=== PATIENT | female | born 2000 | race African-American/Black ===

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

== ENCOUNTER 2019-01-10 15:23 | Emergency (ER) | payer MEDICAID, SELFPAY ==
[2019-01-10] MEDS ORDERED: PEN G BENZ LA 2.4 MU/4 ML SYRINGE IM ONE (17:30)
[2019-01-10 17:31] LABS: Urine Blood NEGATIVE (NEG); Urine Glucose NEGATIVE (NEG); Urine Protein 1+ (NEG); Urine Specific Gravity 1.025 (1.005-1.030)
[2019-01-10 17:53] LABS: Urine Bacteria <20 /HPF (<20); Urine Culture Reflex Order NOT NEEDED; Urine Mucus HEAVY /HPF (NONE SEEN)
--- NOTE | 2019-01-10 18:10 | EDPHYS ---
Physician Documentation [facility] Name: Golden Gusman Age: 18 yrs Sex: Female : 2000 Arrival Date: 01/10/2019 Time: 15:27 Bed 27 Private MD: ED Physician Allan Olivera HPI: 01/10 18:08 This 18 yrs old Black Female presents to ER via Ambulatory with complaints of Sore snw Throat, Abdominal Problem. 18:08 The patient presents with sore throat. The patient describes throat pain as raw, snw scratchy. Onset: The symptoms/episode began/occurred suddenly, 2 day(s) ago, and became persistent. Modifying factors: The symptoms are alleviated by nothing, the symptoms are aggravated by nothing. Associated signs and symptoms: Pertinent positives: concerned for STI post unprotected intercourse. It is unknown whether or not the patient has had similar symptoms in the past. It is unknown whether or not the patient has recently seen a physician. Historical: - Allergies: 15:34 NKA; hb - Home Meds: 15:34 None [Active]; hb - PMHx: 15:34 None; hb - PSHx: 15:34 None; hb - Immunization history:: Adult Immunizations up to date. - Social history:: Smoking status: Patient/guardian denies using tobacco. - Ebola Screening: : No symptoms or risks identified at this time. ROS: 18:03 Constitutional: Negative for fever and weight loss, + chills Eyes: Negative for injury, snw pain, redness, and discharge, ENT: Negative for injury and discharge, + sore throat Neck: Negative for injury, pain, and swelling, Cardiovascular: Negative for chest pain, palpitations, and edema, Respiratory: Negative for shortness of breath, cough, wheezing, and pleuritic chest pain, Abdomen/GI: Negative for abdominal pain, nausea, vomiting, diarrhea, and constipation, Back: Negative for injury and pain, : Negative for injury, bleeding, discharge, and swelling, concern post unprotected intercourse. MS/Extremity: Negative for injury and deformity, Skin: Negative for injury, rash, and discoloration, Neuro: Negative for headache, weakness, numbness, tingling, and seizure, Psych: Negative for depression, anxiety, suicide ideation, homicidal ideation, and hallucinations. Exam: 18:03 Head/Face: Normocephalic, atraumatic. Eyes: Pupils equal round and reactive to light, snw extra-ocular motions intact. Lids and lashes normal. Conjunctiva and sclera are non-icteric and not injected. Cornea within normal limits. Periorbital areas with no swelling, redness, or edema. Neck: Trachea midline, no thyromegaly or masses palpated, and no cervical lymphadenopathy. Supple, full range of motion without nuchal rigidity, or vertebral point tenderness. No Meningismus. Chest/axilla: Normal chest wall appearance and motion. Nontender with no deformity. No lesions are appreciated. 18:03 Respiratory: Lungs have equal breath sounds bilaterally, clear to auscultation and percussion. No rales, rhonchi or wheezes noted. No increased work of breathing, no retractions or nasal flaring. Abdomen/GI: Soft, non-tender, with normal bowel sounds. No distension or tympany. No guarding or rebound. No evidence of tenderness throughout. Back: No spinal tenderness. No costovertebral tenderness. Full range of motion. Skin: Warm, dry with normal turgor. Normal color with no rashes, no lesions, and no evidence of cellulitis. MS/ Extremity: Pulses equal, no cyanosis. Neurovascular intact. Full, normal range of motion. Neuro: Awake and alert, GCS 15, oriented to person, place, time, and situation. Cranial nerves II-XII grossly intact. Motor strength 5/5 in all extremities. Sensory grossly intact. Cerebellar exam normal. Normal gait. Psych: Awake, alert, with orientation to person, place and time. Behavior, mood, and affect are within normal limits. 18:03 Constitutional: The patient appears alert, awake, uncomfortable. 18:03 Cardiovascular: Rate: tachycardic, Rhythm: regular, Heart sounds: normal. Vital Signs: 15:33 BP 131 / 75; Pulse 117; Resp 20; Temp 97.4; Pulse Ox 100% on R/A; Weight 71.67 kg; hb Height 5 ft. 7 in. (170.18 cm); Pain 6/10; 18:29 BP 128 / 71; Pulse 98; Resp 16; Temp 98; Pulse Ox 99% ; rv 15:33 Body Mass Index 24.75 (71.67 kg, 170.18 cm) hb MDM: 16:39 Patient medically screened. snw 18:10 Data reviewed: vital signs, nurses notes. Data interpreted: Pulse oximetry: on room air snw is 100 %. Interpretation: normal. Counseling: I had a detailed discussion with the patient and/or guardian regarding: the historical points, exam findings, and any diagnostic results supporting the discharge/admit diagnosis, lab results, the need for outpatient follow up, to return to the emergency department if symptoms worsen or persist or if there are any questions or concerns that arise at home. Special discussion: Based on the history and exam findings, there is no indication for further emergent testing or inpatient evaluation. I discussed with the patient/guardian the need to see the primary care provider for further evaluation of the symptoms. 01/10 16:21 Order name: Flu; Complete Time: 18:27 snw 01/10 16:21 Order name: Strep; Complete Time: 17:18 snw 01/10 16:31 Order name: Urine Culture snw 01/10 16:31 Order name: Urine Microscopic Only; Complete Time: 18:12 snw 01/10 16:59 Order name: GC (Ulisses/Chl) Probe URINE EDMS 01/10 17:18 Order name: Urine Dipstick--Ancillary (enter results); Complete Time: 17:35 bd 01/10 16:31 Order name: Urine Test (obtain specimen); Complete Time: 17:10 snw 01/10 16:31 Order name: Urine Dipstick-Ancillary (obtain specimen); Complete Time: 17:10 snw 01/10 17:18 Order name: Urine --Ancillary (enter results); Complete Time: 17:35 bd Administered Medications: 17:33 Drug: Bicillin L-A 2.4 million units Route: IM; Site: left gluteus; rv 18:28 Follow up: Response: No adverse reaction rv Disposition: 01/11 07:17 Co-signature as Attending Physician, Allan Olivera MD I agree with the assessment and kdr plan of care. Disposition: 01/10/19 18:09 Discharged to Home. Impression: Streptococcal pharyngitis. - Condition is Stable. - Discharge Instructions: Fever, Adult, Sexually Transmitted Disease, Strep Throat, Rehydration, Adult, Safe Sex. - Prescriptions for Mobic 7.5 mg Oral Tablet - take 1 tablet by ORAL route once daily take with food; 20 tablet. - Medication Reconciliation Form, Thank You Letter, Antibiotic Education, Prescription Opioid Use form. - Follow up: Private Physician; When: 2 - 3 days; Reason: Recheck today's complaints, Continuance of care, Re-evaluation by your physician. Follow up: Emergency Department; When: As needed; Reason: Worsening of condition. Signatures: Dispatcher [employer] EDMS Allan Olivera MD MD [facility] Mary Mathur, ARIAN-C CASE MONITOR-[place] Joyce Tan, RN RN Tree Gasca, ELIZABETH RN rv Corrections: (The following items were deleted from the chart) 01/10 18:28 18:09 01/10/2019 18:09 Discharged to Home. Impression: Streptococcal pharyngitis. rv Condition is Stable. Forms are Medication Reconciliation Form, Thank You Letter, Antibiotic Education, Prescription Opioid Use. Follow up: Private Physician; When: 2 - 3 days; Reason: Recheck today's complaints, Continuance of care, Re-evaluation by your physician. Follow up: Emergency Department; When: As needed; Reason: Worsening of condition. snw
--- NOTE | 2019-01-10 18:10 | ER ---
Nurse's Notes [facility] Name: Golden Gusman Age: 18 yrs Sex: Female : 2000 Arrival Date: 01/10/2019 Time: 15:27 Bed 27 Private MD: Diagnosis: Streptococcal pharyngitis Presentation: 01/10 15:31 Presenting complaint: Abdominal pain, sore throat, and dizziness x 5 days. Pt also hb reports foul smelling discharge after unprotected sex 1 week ago. Transition of care: patient was not received from another setting of care. Onset of symptoms was January 10, 2019. Risk Assessment: Do you want to hurt yourself or someone else? Patient reports no desire to harm self or others. Care prior to arrival: None. 15:31 Method Of Arrival: Ambulatory 15:31 Acuity: ANALIA 3 hb 17:08 Initial Sepsis Screen: Does the patient meet any 2 criteria? No. Patient's initial rv sepsis screen is negative. Does the patient have a suspected source of infection? No. Patient's initial sepsis screen is negative. Historical: - Allergies: 15:34 NKA; hb - Home Meds: 15:34 None [Active]; hb - PMHx: 15:34 None; hb - PSHx: 15:34 None; hb - Immunization history:: Adult Immunizations up to date. - Social history:: Smoking status: Patient/guardian denies using tobacco. - Ebola Screening: : No symptoms or risks identified at this time. Screenin:08 Abuse screen: Denies threats or abuse. Denies injuries from another. Nutritional rv screening: No deficits noted. Tuberculosis screening: No symptoms or risk factors identified. Fall Risk None identified. Assessment: 17:06 General: Appears in no apparent distress. comfortable, Behavior is calm, cooperative. rv Pain: Complains of pain in abdomen. Neuro: Level of Consciousness is awake, alert, obeys commands, Oriented to person, place, time, situation. Cardiovascular: Patient's skin is warm and dry. Respiratory: Airway is patent Respiratory effort is even, Breath sounds are clear bilaterally. GI: No signs and/or symptoms were reported involving the gastrointestinal system. : No signs and/or symptoms were reported regarding the genitourinary system. EENT: Throat is clear. Derm: Skin is intact. Musculoskeletal: No signs and/or symptoms reported regarding the musculoskeletal system. 18:27 Reassessment: Patient appears in no apparent distress at this time. No changes from rv previously documented assessment. Vital Signs: 15:33 BP 131 / 75; Pulse 117; Resp 20; Temp 97.4; Pulse Ox 100% on R/A; Weight 71.67 kg; hb Height 5 ft. 7 in. (170.18 cm); Pain 6/10; 18:29 BP 128 / 71; Pulse 98; Resp 16; Temp 98; Pulse Ox 99% ; rv 15:33 Body Mass Index 24.75 (71.67 kg, 170.18 cm) hb ED Course: 15:27 Patient arrived in ED. mr 15:33 Triage completed. hb 15:34 Arm band placed on. hb 16:20 Mary Mathur FNP-C is PHCP. snw 16:20 Allan Olivera MD is Attending Physician. snw 17:06 Tree Gasca, ELIZABETH is Primary Nurse. rv 17:09 Patient has correct armband on for positive identification. Bed in low position. Call rv light in reach. Side rails up X 1. Pulse ox on. NIBP on. 17:10 GC (Ulisses/Chl) Probe URINE Sent. rv 17:10 Urine Microscopic Only Sent. rv 17:10 Strep Sent. rv 17:10 Flu Sent. rv 18:27 No provider procedures requiring assistance completed. Patient did not have IV access rv during this emergency room visit. Administered Medications: 17:33 Drug: Bicillin L-A 2.4 million units Route: IM; Site: left gluteus; rv 18:28 Follow up: Response: No adverse reaction rv Outcome: 18:09 Discharge ordered by . snw 18:27 Discharged to home ambulatory. rv 18:27 Condition: good 18:27 Discharge instructions given to patient, Instructed on discharge instructions, follow up and referral plans. medication usage, safe sex practices, Demonstrated understanding of instructions, follow-up care, medications, Prescriptions given X 1. 18:28 Patient left the ED. rv Signatures: Mary Mathur FNP-C FNP-Norma OrtegaaDoris Joyce Tan RN RN Tree Gasca, ELIZABETH RN rv Corrections: (The following items were deleted from the chart) 15:35 15:31 Presenting complaint: Abdominal pain, sore throat, and dizziness x 5 days. Pt hb also reports foul smelling discharge after unprotected sex 1 week ago. hb
[2019-01-10 20:03] VITALS: BP 128/71; TEMP 98; O2SAT 99
[2019-01-15 08:13] LABS: C.trachomatis RNA,TMA Detected (Not Detected)
--- OUTSIDE RECORDS SUMMARY | 2019-01-15 23:52 | XMS REPORT ---
:2000 [facility] Address [address] [place] [address] [address] [place] [address] Care Team Providers Name Role Phone Unavailable Unavailable Unavailable Problems This patient has no known problems. Allergies, Adverse Reactions, Alerts This patient has no known allergies or adverse reactions. Medications This patient has no known medications.
== END 2019-01-10 18:28 | disposition home or self-care (01) ==
LOC: ER 15:23
DX: J02.0 Streptococcal pharyngitis (principal)
CPT/HCPCS: 81003; 81015; 81025; 87081; 87086; 87088; 87490; 87590; 87804; 96372; 99284; J0561

== ENCOUNTER 2019-09-02 14:09 | Emergency (ER) | payer SELFPAY ==
--- OUTSIDE RECORDS SUMMARY | 2019-09-02 14:11 | XMS REPORT | Continuity of Care Document ---
:2000 Author Organization [facility] Address [address] [place] [address] [address]. [address] [place] [address] Care Team Providers Name Role Phone Unavailable Unavailable Unavailable Problems This patient has no known problems. Allergies, Adverse Reactions, Alerts This patient has no known allergies or adverse reactions. Medications This patient has no known medications. Procedures This patient has no known procedures. Results This patient has no known results.
--- NOTE | 2019-09-02 16:19 | ER ---
Nurse's Notes [facility] Name: Golden Gusman Age: 19 yrs Sex: Female : 2000 Arrival Date: 09/02/2019 Time: 14:11 Bed 13 Private MD: Diagnosis: Acute streptococcal tonsillitis, unspecified Presentation: 09/01 14:47 Chief complaint: Patient states: It started yesterday morning, body aches, chills, pus ca1 pockets on back of my throat, head is throbbing, L ear hurting. Denies cough. Denies fever. Denies SOB. Coronavirus screen: Proceed with normal triage. Patient denies a cough. Patient denies shortness of breath or difficulty breathing. Patient denies measured and/or subjective temperature greater than 100.4F prior to today's visit. Patient denies travel on a cruise ship or to a country the [facility] currently lists as an affected area. Patient denies contact with known and/or suspected case of COVID-19. Ebola Screen: Patient negative for fever greater than or equal to 101.5 degrees Fahrenheit, and additional compatible Ebola Virus Disease symptoms Patient denies exposure to infectious person. Patient denies travel to an Ebola-affected area in the 21 days before illness onset. No symptoms or risks identified at this time. Initial Sepsis Screen: Does the patient meet any 2 criteria? No. Patient's initial sepsis screen is negative. Does the patient have a suspected source of infection? No. Patient's initial sepsis screen is negative. Risk Assessment: Do you want to hurt yourself or someone else? Patient reports no desire to harm self or others. Onset of symptoms was September 02, 2019. 14:47 Method Of Arrival: Ambulatory ca1 14:47 Acuity: ANALIA 4 ca1 Triage Assessment: 15:57 General: Appears in no apparent distress. comfortable, Behavior is calm, cooperative. ls4 Pain: Complains of pain in left aspect of posterior pharynx and right aspect of posterior pharynx Pain currently is 5 out of 10 on a pain scale. EENT: Throat is reddened. 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 - Social history:: Smoking status: Patient denies any tobacco usage or history of. Screenin:59 Abuse screen: Denies threats or abuse. Denies injuries from another. Nutritional ls4 screening: No deficits noted. Tuberculosis screening: No symptoms or risk factors identified. Fall Risk None identified. Assessment: 15:58 General: Appears in no apparent distress. comfortable. Neuro: No deficits noted. ls4 Cardiovascular: No deficits noted. Patient's skin is warm and dry. Respiratory: Airway is patent Respiratory effort is even, unlabored, Breath sounds are clear bilaterally. GI: No deficits noted. No signs and/or symptoms were reported involving the gastrointestinal system. : No deficits noted. No signs and/or symptoms were reported regarding the genitourinary system. EENT: Reports pain in mouth and right aspect of posterior pharynx and left aspect of posterior pharynx. Derm: Skin is intact, Skin is dry, Skin is normal. Musculoskeletal: No deficits noted. No signs and/or symptoms reported regarding the musculoskeletal system. Vital Signs: 14:47 BP 132 / 77; Pulse 107; Resp 19 S; Temp 97.6(TE); Pulse Ox 100% on R/A; Weight 65.77 kg ca1 (R); Height 5 ft. 10 in. (177.80 cm) (R); 14:47 Body Mass Index 20.81 (65.77 kg, 177.80 cm) ca1 ED Course: 14:11 Patient arrived in ED. as 14:49 Triage completed. ca1 14:50 Arm band placed on right wrist. ca1 14:51 Patient has correct armband on for positive identification. Bed in low position. Call ls4 light in reach. Side rails up X 1. 15:53 Ramesh Kelly PA is PHCP. cp 15:53 Doe Casey MD is Attending Physician. cp 15:57 Aby Lawton, ELIZABETH is Primary Nurse. ls4 16:58 No apparent distress. ls4 16:58 No provider procedures requiring assistance completed. Patient did not have IV access ls4 during this emergency room visit. Administered Medications: 16:46 Drug: Augmentin 875 mg Route: PO; ls4 16:46 Drug: Tylenol 650 mg Route: PO; ls4 16:46 Drug: Viscous Lidocaine Liquid (4 %) 5 ml Route: Mucous Membrane; ls4 Outcome: 16:19 Discharge ordered by . shefali 16:58 Discharged to home ambulatory. ls4 16:58 Condition: good 16:58 Discharge instructions given to patient, Instructed on discharge instructions, follow up and referral plans. safety practices, Demonstrated understanding of instructions, follow-up care, medications, Prescriptions given X 2. 17:00 Patient left the ED. ls4 Signatures: Julieta Fuentes Corey, PA PA cp Stewart, Lisa, RN RN ls4 Janee Higgins RN RN ca1
--- NOTE | 2019-09-02 16:19 | EDPHYS ---
Physician Documentation [facility] Name: Golden Gusman Age: 19 yrs Sex: Female : 2000 Arrival Date: 09/02/2019 Time: 14:11 Bed 13 Private MD: ED Physician Doe Casey HPI: 09/01 16:10 This 19 yrs old Black Female presents to ER via Ambulatory with complaints of Sore cp Throat, Pain All Over. 16:10 The patient presents with sore throat, dysphagia, of both solids and liquids. The cp patient describes throat pain as constant. Onset: The symptoms/episode began/occurred yesterday. Severity of symptoms: in the emergency department the symptoms are unchanged, despite home interventions. Associated signs and symptoms: Pertinent positives: Sore throat body aches, Pertinent negatives cough, diarrhea, fever, vomiting. 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 - Social history:: Smoking status: Patient denies any tobacco usage or history of. ROS: 16:11 Eyes: Negative for injury, pain, redness, and discharge. cp 16:11 Constitutional: Positive for body aches, Negative for fever, poor PO intake. 16:11 ENT: Positive for sore throat, Negative for drainage from ear(s), ear pain, difficulty handling secretions. 16:11 Respiratory: Negative for cough, shortness of breath, wheezing. 16:11 Abdomen/GI: Negative for abdominal pain, nausea, vomiting, and diarrhea. 16:11 Skin: Negative for rash. 16:11 Neuro: Negative for altered mental status, headache, weakness. 16:11 All other systems are negative. Exam: 16:15 Constitutional: The patient appears in no acute distress, alert, awake, non-toxic, well cp developed, well nourished. 16:15 Head/Face: Normocephalic, atraumatic. cp 16:15 Eyes: Periorbital structures: appear normal, Conjunctiva: normal, no exudate, no injection, Lids and lashes: appear normal, bilaterally. 16:15 ENT: External ear(s): are unremarkable, Nose: is normal, Mouth: Lips: moist, Oral mucosa: moist, Posterior pharynx: Airway: no evidence of obstruction, patent, Tonsils: bilaterally enlarged, with erythema, with exudate, erythema, that is moderate. 16:15 Neck: ROM/movement: Meningeal signs: are not present, Lymph nodes: lymphadenopathy is appreciated, anterior cervical nodes. 16:15 Chest/axilla: Inspection: normal. 16:15 Cardiovascular: Rate: tachycardic. 16:15 Respiratory: the patient does not display signs of respiratory distress, Respirations: normal, no use of accessory muscles, no retractions, labored breathing, is not present. 16:15 Abdomen/GI: Exam negative for discomfort, distension, guarding, Inspection: abdomen cp appears normal. 16:15 Skin: no rash present. 16:15 Neuro: Orientation: to person, place \T\ time. Mentation: is normal. cp Vital Signs: 14:47 BP 132 / 77; Pulse 107; Resp 19 S; Temp 97.6(TE); Pulse Ox 100% on R/A; Weight 65.77 kg ca1 (R); Height 5 ft. 10 in. (177.80 cm) (R); 14:47 Body Mass Index 20.81 (65.77 kg, 177.80 cm) ca1 MDM: 16:06 Patient medically screened. cp 16:15 Differential diagnosis: epiglottitis, group A strep tonsillitis, influenza, cp mononucleosis, peritonsillar abscess pharyngitis, retropharyngeal abcess tonsillitis, uvulitis. 16:18 Data reviewed: vital signs, nurses notes, lab test result(s), and as a result, I will cp discharge patient. 16:18 Counseling: I had a detailed discussion with the patient and/or guardian regarding: the cp historical points, exam findings, and any diagnostic results supporting the discharge/admit diagnosis, lab results, to return to the emergency department if symptoms worsen or persist or if there are any questions or concerns that arise at home. Response to treatment: the patient's symptoms have mildly improved after treatment, and as a result, I will discharge patient. 09/01 14:50 Order name: Strep ca1 09/01 16:17 Order name: Urine Dipstick--Ancillary (enter results) eb 09/01 16:17 Order name: Urine --Ancillary (enter results) eb Administered Medications: 16:46 Drug: Augmentin 875 mg Route: PO; ls4 16:46 Drug: Tylenol 650 mg Route: PO; ls4 16:46 Drug: Viscous Lidocaine Liquid (4 %) 5 ml Route: Mucous Membrane; ls4 Disposition: 18:30 Co-signature as Attending Physician, Doe Casey MD. rn Disposition: 09/02/19 16:19 Discharged to Home. Impression: Acute streptococcal tonsillitis, unspecified. - Condition is Stable. - Discharge Instructions: Strep Throat, Tonsillitis. - Prescriptions for Lidocaine Viscous - take 5 milliliter by ORAL route every 4-6 hours As needed; 1 bottle. Augmentin 875- 125 mg Oral Tablet - take 1 tablet by ORAL route every 12 hours for 10 days; 20 tablet. - Medication Reconciliation Form, Thank You Letter, Antibiotic Education, Prescription Opioid Use form. - Follow up: Private Physician; When: 2 - 3 days; Reason: Worsening of condition. - Problem is new. - Symptoms have improved. Signatures: Dispatcher [employer] EDMS Doe Casey MD MD rn Ramesh Kelly PA PA cp Aby Lawton RN RN ls4 Janee Higgins RN RN [facility] Corrections: (The following items were deleted from the chart) 17:00 16:19 09/02/2019 16:19 Discharged to Home. Impression: Acute streptococcal tonsillitis, ls4 unspecified. Condition is Stable. Forms are Medication Reconciliation Form, Thank You Letter, Antibiotic Education, Prescription Opioid Use. Follow up: Private Physician; When: 2 - 3 days; Reason: Worsening of condition. Problem is new. Symptoms have improved. cp 09/02 15:20 09/01 16:30 Differential diagnosis: epiglottitis, group A strep tonsillitis, influenza, cp mononucleosis, peritonsillar abscess pharyngitis, retropharyngeal abcess tonsillitis, uvulitis, cp
[2019-09-02] MEDS ORDERED: ACETAMINOPHEN 325 MG TABLET ONE (16:54)
[2019-09-02] MEDS ORDERED: AMOX/K CLAV 875 MG TAB ONE (16:54)
[2019-09-02] MEDS ORDERED: LIDOCAINE VISCOUS 2% SOLN 15 ML UDC ONE (16:55)
[2019-09-02 17:05] VITALS: BP 132/77; TEMP 97.6; O2SAT 100
[2019-09-02 17:25] LABS: Urine Specific Gravity 1.015 (1.005-1.030)
[2019-09-02 17:26] LABS: Urine Blood NEGATIVE (NEG); Urine Glucose NEGATIVE (NEG); Urine Protein NEGATIVE (NEG)
== END 2019-09-02 17:00 | disposition home or self-care (01) ==
LOC: ER 14:09
DX: J03.00 Acute streptococcal tonsillitis, unspecified (principal)
CPT/HCPCS: 81003; 81025; 87081; 99283

== ENCOUNTER 2019-10-02 14:35 | Emergency (ER) | payer SELFPAY ==
[2019-10-02 15:28] LABS: Urine Blood NEGATIVE (NEG); Urine Glucose NEGATIVE (NEG); Urine Protein NEGATIVE (NEG)
[2019-10-02 16:17] LABS: Absolute Lymphocytes (CBC) 1.5 K/uL (0.7-4.9); Basophils % 0.4 % (0-1.3); Hematocrit 34.9 % (36.0-45.0); Lymphocytes % 25.9 % (15.3-44.8); MPV 7.9 fL (7.6-11.3); RBC Red Blood Cell Count 4.05 M/uL (3.86-4.86)
[2019-10-02 16:49] LABS: BUN Blood Urea Nitrogen 4 mg/dL (7-18); Bicarbonate 25 mmol/L (21-32); Glucose Level 80 mg/dL (74-106); HCG, Quantitative 75215 mIU/mL (1-3); Potassium 3.4 mmol/L (3.5-5.1); Sodium Level 136 mmol/L (136-145)
[2019-10-02] MEDS ORDERED: CEFTRIAXONE 1000 MG/VIAL ONE (16:55)
[2019-10-02] MEDS ORDERED: AZITHROMYCIN 250 MG TAB ONE ×2 (16:55→16:57)
[2019-10-02] MEDS ORDERED: WATER FOR INJ,STERILE 10 ML ONE (16:55)
[2019-10-02] MEDS ORDERED: PROMETHAZINE INJ 25 MG/ML AMP ONE (17:54)
[2019-10-02 18:51] VITALS: TEMP 98.4
[2019-10-02 18:55] VITALS: BP 112/69; O2SAT 98
--- NOTE | 2019-10-02 21:38 | ER ---
Nurse's Notes [facility] Name: Golden Gusman Age: 19 yrs Sex: Female : 2000 Arrival Date: 10/02/2019 Time: 14:44 Bed 18 Private MD: Diagnosis: Threatened Presentation: 10/01 14:45 Chief complaint: Patient states: Abdominal pains and cramping for 1 week. + DAVISON and ll1 cough. States she is about 6 weeks . G3, P1. Spotting yesterday. Coronavirus screen: Patient reports a cough. Patient denies shortness of breath or difficulty breathing. Patient denies measured and/or subjective temperature greater than 100.4F prior to today's visit. Patient denies travel on a cruise ship or to a country the [facility] currently lists as an affected area. Patient denies contact with known and/or suspected case of COVID-19. Proceed with normal triage. Ebola Screen: Patient denies travel to an Ebola-affected area in the 21 days before illness onset. Initial Sepsis Screen: Does the patient meet any 2 criteria? No. Patient's initial sepsis screen is negative. Risk Assessment: Do you want to hurt yourself or someone else? Patient reports no desire to harm self or others. Onset of symptoms was September 25, 2019. 14:45 Method Of Arrival: Ambulatory ll1 14:45 Acuity: ANALIA 3 ll1 18:00 Initial Sepsis Screen: Does the patient have a suspected source of infection? No. jl7 Patient's initial sepsis screen is negative. 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 - Social history:: Smoking status: Patient denies any tobacco usage or history of. Patient/guardian denies using alcohol, street drugs, tobacco products. Screenin:30 Abuse screen: Denies threats or abuse. Denies injuries from another. Nutritional 7 screening: No deficits noted. Tuberculosis screening: No symptoms or risk factors identified. Fall Risk IV access (20 points). Total Conteh Fall Scale indicates No Risk (0-24 pts). Assessment: 15:00 General: Appears in no apparent distress. uncomfortable, Behavior is calm, cooperative, jl7 appropriate for age. Pain: Complains of pain in abdomen diffusely Pain currently is 8 out of 10 on a pain scale. Is continuous. Neuro: Level of Consciousness is awake, alert, obeys commands, Oriented to person, place, time, situation. Cardiovascular: Patient's skin is warm and dry. Respiratory: Airway is patent Respiratory effort is even, unlabored, Respiratory pattern is regular, symmetrical. GI: Abdomen is round non-distended. : Reports discharge, malodorous. Derm: Skin is pink, warm \T\ dry. 16:00 Reassessment: Patient appears in no apparent distress at this time. No changes from jl7 previously documented assessment. Patient and/or family updated on plan of care and expected duration. Pain level reassessed. Patient is alert, oriented x 3, equal unlabored respirations, skin warm/dry/pink. 17:00 Reassessment: Patient appears in no apparent distress at this time. Patient and/or jl7 family updated on plan of care and expected duration. Pain level reassessed. Patient is alert, oriented x 3, equal unlabored respirations, skin warm/dry/pink. 17:43 Reassessment: Pt actively vomiting, ERP notified, see MAR for orders. jl7 18:15 Reassessment: Patient appears in no apparent distress at this time. Patient and/or jl7 family updated on plan of care and expected duration. Pain level reassessed. Patient is alert, oriented x 3, equal unlabored respirations, skin warm/dry/pink. Patient states feeling better. Patient states symptoms have improved. Vital Signs: 14:45 BP 145 / 117; Pulse 80; Resp 16; Temp 98.4; Pulse Ox 98% ; Pain 9/10; ll1 15:43 BP 116 / 89; Pulse 81; Resp 15; Pulse Ox 100% ; Pain 8/10; jl7 16:45 BP 113 / 61; Pulse 77; Resp 17; Pulse Ox 100% ; jl7 18:44 BP 112 / 69; Pulse 80; Resp 17; Pulse Ox 98% ; jl7 ED Course: 14:44 Patient arrived in ED. fj1 14:45 Arm band placed on Patient placed in an exam room, on a stretcher. ll1 14:47 Triage completed. ll1 14:49 Madan Rasheed, ELIZABETH is Primary Nurse. jl7 14:52 Kenneth Dhillon NP is PHCP. pm1 14:52 Doe Casey MD is Attending Physician. pm1 15:30 Patient has correct armband on for positive identification. Placed in gown. Bed in low jl7 position. Call light in reach. Side rails up X 1. Pulse ox on. NIBP on. 15:30 Initial lab(s) drawn, by ok, sent to lab. Urine collected: clean catch specimen, clear. jl7 Inserted saline lock: 22 gauge in right wrist, using aseptic technique. Blood collected. 17:00 Assist provider with pelvic exam: Set up pelvic tray. Performed by Kenneth Dhillon NP jl7 Specimens sent to lab. Patient tolerated well. 17:00 Wet prep swab sent to lab. jl7 18:45 IV discontinued, intact, bleeding controlled, No redness/swelling at site. Pressure jl7 dressing applied. 22:14 US Transvaginal Ob In Process Unspecified. EDMS Administered Medications: 15:25 Drug: NS 0.9% 1000 ml Route: IV; Rate: 1000 ml; Site: right wrist; jl7 17:00 Follow up: Response: No adverse reaction; IV Status: Completed infusion; IV Intake: jl7 700ml 17:00 Drug: Zithromax 1 grams Route: PO; jl7 17:43 Follow up: Response: Adverse reaction, Physician notified jl7 17:11 Drug: Rocephin (cefTRIAXone) 250 mg Route: IM; Site: left ventrogluteal; jl7 17:57 Follow up: Response: No adverse reaction jl7 17:46 Drug: Phenergan 12.5 mg Route: IVP; Site: right wrist; jl7 18:15 Follow up: Response: No adverse reaction; Nausea is decreased jl7 Intake: 17:00 IV: 700ml; Total: 700ml. jl7 Outcome: 18:32 Discharge ordered by . pm1 18:45 Discharged to home ambulatory. jl7 18:45 Condition: stable 18:45 Discharge instructions given to patient, Instructed on discharge instructions, follow up and referral plans. medication usage, Demonstrated understanding of instructions, follow-up care, medications, Prescriptions given X 1. 18:45 Patient left the ED. jl7 Signatures: Dispatcher [employer] EDMS Kenneth Dhillon NP REAL ESTATE SALES AGENT pm1 Madan Rasheed RN RN jl7 Chacorta Barber fj1 Maged Saldana RN RN ll1 Corrections: (The following items were deleted from the chart) 17:56 17:55 Response: No adverse reaction; IV Status: Completed infusion; IV Intake: 700ml [id number] 18:45 16:45 IV discontinued, intact, bleeding controlled, No redness/swelling at site. jl7 Pressure dressing applied, jl7
--- NOTE | 2019-10-02 21:38 | EDPHYS ---
Physician Documentation [facility] Name: Golden Gusman Age: 19 yrs Sex: Female : 2000 Arrival Date: 10/02/2019 Time: 14:44 Bed 18 Private MD: ED Physician Doe Casey HPI: 10/01 15:00 This 19 yrs old Black Female presents to ER via Ambulatory with complaints of Abdominal pm1 Pain, Headache, 6WKS PREG. 15:00 The patient presents with abdominal pain suprapubic. pm1 15:00 Onset: The symptoms/episode began/occurred 1 week(s) ago. The symptoms do not radiate. pm1 15:00 The patient presents with vaginal bleeding that is spotting. Onset: The pm1 symptoms/episode began/occurred vaginal bleeding onset yesterday. Modifying factors: The symptoms are alleviated by nothing, the symptoms are aggravated by nothing. Associated signs and symptoms: Pertinent positives: vaginal discharge, Headache, Pertinent negatives: constipation, dysuria, fever. The patient's method of control includes nothing. The patient has not recently seen a physician. 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 - Social history:: Smoking status: Patient denies any tobacco usage or history of. Patient/guardian denies using alcohol, street drugs, tobacco products. ROS: 15:00 Positive for pelvic pain, vaginal bleeding, vaginal discharge, Negative for flank pm1 pain. 15:00 Constitutional: Negative for fever, chills, and weight loss, Cardiovascular: Negative for chest pain, palpitations, and edema, Respiratory: Negative for shortness of breath, cough, wheezing, and pleuritic chest pain. 15:00 Back: Negative for injury and pain. 15:00 MS/Extremity: Negative for injury and deformity, Skin: Negative for injury, rash, and discoloration. 15:00 Neuro: Negative for headache, weakness, numbness, tingling, and seizure. 15:00 Abdomen/GI: Positive for abdominal cramps, of the suprapubic area. 15:00 : Positive for vaginal bleeding, vaginal discharge, Negative for urinary symptoms, vaginal itching. Exam: 15:00 Constitutional: This is a well developed, well nourished patient who is awake, alert, pm1 and in no acute distress. Head/Face: Normocephalic, atraumatic. Respiratory: Lungs have equal breath sounds bilaterally, clear to auscultation and percussion. No rales, rhonchi or wheezes noted. No increased work of breathing, no retractions or nasal flaring. Abdomen/GI: Soft, non-tender, with normal bowel sounds. No distension or tympany. No guarding or rebound. No evidence of tenderness throughout. Back: No spinal tenderness. No costovertebral tenderness. Full range of motion. Skin: Warm, dry with normal turgor. Normal color with no rashes, no lesions, and no evidence of cellulitis. MS/ Extremity: Pulses equal, no cyanosis. Neurovascular intact. Full, normal range of motion. 15:00 Cardiovascular: Exam negative for acute changes, Rate: normal, Rhythm: regular, Pulses: no pulse deficits are appreciated. 15:00 Neuro: Exam negative for acute changes, Orientation: is normal, Mentation: is normal, Motor: is normal, moves all fours. 17:04 : Pelvic Exam: External exam: is normal, Speculum exam: normal findings, no bleeding pm1 is noted, no cervicitis, bimanual exam reveals normal findings, no cervical motion tenderness, no adnexa tenderness or masses bilaterally, Madan JOHNSON. Vital Signs: 14:45 BP 145 / 117; Pulse 80; Resp 16; Temp 98.4; Pulse Ox 98% ; Pain 9/10; ll1 15:43 BP 116 / 89; Pulse 81; Resp 15; Pulse Ox 100% ; Pain 8/10; jl7 16:45 BP 113 / 61; Pulse 77; Resp 17; Pulse Ox 100% ; jl7 18:44 BP 112 / 69; Pulse 80; Resp 17; Pulse Ox 98% ; jl7 MDM: 14:55 Patient medically screened. pm1 17:04 Data reviewed: vital signs. Data interpreted: Pulse oximetry: on room air is 100 %. pm1 Interpretation: normal. 18:31 Counseling: I had a detailed discussion with the patient and/or guardian regarding: the pm1 historical points, exam findings, and any diagnostic results supporting the discharge/admit diagnosis, lab results, radiology results, the need for outpatient follow up, an OB/Gyne specialist, to return to the emergency department if symptoms worsen or persist or if there are any questions or concerns that arise at home. 10/01 15:00 Order name: Quantitative Hcg; Complete Time: 16:59 pm10/01 15:00 Order name: Abo/rh Typing; Complete Time: 16:31 pm10/01 15:00 Order name: Basic Metabolic Panel; Complete Time: 16:59 pm10/01 15:00 Order name: CBC with Diff; Complete Time: 16:31 pm10/01 15:14 Order name: Urine Dipstick--Ancillary (enter results); Complete Time: 15:31 mt 10/01 15:14 Order name: Urine --Ancillary (enter results); Complete Time: 15:31 mt 10/01 15:00 Order name: US Transvaginal Ob; Complete Time: 15:32 pm10/01 16:30 Order name: Wet Prep; Complete Time: 18:31 pm10/01 16:30 Order name: GC Probe 10/01 18:43 Order name: ABO/RH no charge; Complete Time: 15:32 EDMS 10/01 15:00 Order name: Urine Test (obtain specimen); Complete Time: 15:42 pm10/01 15:00 Order name: IV Saline Lock; Complete Time: 15:42 pm10/01 15:00 Order name: Labs collected and sent; Complete Time: 15:42 pm10/01 15:00 Order name: NPO; Complete Time: 15:42 pm10/01 15:00 Order name: Urine Dipstick-Ancillary (obtain specimen); Complete Time: 15:42 10/01 16:30 Order name: Pelvic Exam Setup; Complete Time: 17:11 pm1 Administered Medications: 15:25 Drug: NS 0.9% 1000 ml Route: IV; Rate: 1000 ml; Site: right wrist; jl7 17:00 Follow up: Response: No adverse reaction; IV Status: Completed infusion; IV Intake: jl7 700ml 17:00 Drug: Zithromax 1 grams Route: PO; jl7 17:43 Follow up: Response: Adverse reaction, Physician notified jl7 17:11 Drug: Rocephin (cefTRIAXone) 250 mg Route: IM; Site: left ventrogluteal; jl7 17:57 Follow up: Response: No adverse reaction jl7 17:46 Drug: Phenergan 12.5 mg Route: IVP; Site: right wrist; jl7 18:15 Follow up: Response: No adverse reaction; Nausea is decreased jl7 Disposition: 18:50 Co-signature as Attending Physician, Doe Casey MD. rn Disposition: 10/02/19 18:32 Discharged to Home. Impression: Threatened . - Condition is Stable. - Discharge Instructions: Threatened Miscarriage, Pelvic Rest. - Prescriptions for Vitamin 27- 0.8 mg Oral Tablet - take 1 tablet by ORAL route once daily; 60 tablet. - Medication Reconciliation Form, Thank You Letter, Antibiotic Education, Prescription Opioid Use form. - Follow up: Emergency Department; When: As needed; Reason: Worsening of condition. Follow up: Private Physician; When: 2 - 3 days; Reason: Recheck today's complaints, Continuance of care, Re-evaluation by your physician. - Problem is new. - Symptoms have improved. Signatures: Dispatcher [employer] EDDoe Zacarias MD MD rn Marinas, Patrick, NP LOGISTICS/SHIPPER pm1 Madan Rasheed RN RN jl7 Maged Saldana RN RN ll1 Corrections: (The following items were deleted from the chart) 18:45 18:32 10/02/2019 18:32 Discharged to Home. Impression: Threatened . Condition jl7 is Stable. Discharge Instructions: Threatened Miscarriage, Pelvic Rest. Prescriptions for Vitamin 27-0.8 mg Oral Tablet - take 1 tablet by ORAL route once daily; 60 tablet. and Forms are Medication Reconciliation Form, Thank You Letter, Antibiotic Education, Prescription Opioid Use. Follow up: Emergency Department; When: As needed; Reason: Worsening of condition. Follow up: Private Physician; When: 2 - 3 days; Reason: Recheck today's complaints, Continuance of care, Re-evaluation by your physician. Problem is new. Symptoms have improved. pm1
--- OUTSIDE RECORDS SUMMARY | 2019-10-02 22:17 | XMS REPORT | Continuity of Care Document ---
:2000 Author Organization [facility] Address [address] [place] [address] Dr. Aguero [phone] Care Team Providers Name Role Phone Unavailable Unavailable Unavailable Problems This patient has no known problems. Allergies, Adverse Reactions, Alerts This patient has no known allergies or adverse reactions. Medications This patient has no known medications. Procedures This patient has no known procedures. Results This patient has no known results.
--- NOTE | 2019-10-02 22:23 | RAD REPORT ---
EXAM DESCRIPTION: US - Transvaginal OB - 10/02/2019 10:14 pm CLINICAL HISTORY: VAGINAL BLEEDING COMPARISON: Transvaginal OB dated 12/01/2017 FINDINGS: A single gestational sac is seen within the uterus. The shape of the sac is within normal limits for gestational age. Within the sac is a single pole with crown-rump length of 8 mm, cor relating to estimated gestational age of 6 weeks 6 days. Estimated date of delivery is 05/21/2020. Heart rate is 137 BPM. The placenta is not yet developed due to early gestational age. The maternal adnexa and ovaries are within normal limits. Normal Doppler blood flow was demonstrated to both ovaries. IMPRESSION: Single live early intrauterine gestation with estimated gestational age of 6 weeks 6 day s, EMILY 05/21/2020. No unusual or unexpected finding.
== END 2019-10-02 18:45 | disposition home or self-care (01) ==
LOC: ER 14:35
DX: O20.0 Threatened abortion (principal); Z3A.01 Less than 8 weeks gestation of pregnancy
CPT/HCPCS: 36415; 76817; 80048; 81003; 81025; 84702; 85025; 86900; 86901; 87210; 87490; 87590; 96361; 96372; 96374; 99284; J2550

== ENCOUNTER 2020-01-30 18:39 | Emergency (ER) | payer SELFPAY ==
--- OUTSIDE RECORDS SUMMARY | 2020-01-30 18:45 | XMS REPORT | Summary of Care ---
:2000 Author Organization [facility] Address [address] [place] [id number] Care Team Providers Name Role Phone Sancho[employer]isha [employer] Pcp, Does Not Have A Primary Care Provider Reason for Referral MRI/CAT Scan (STAT) Status Reason Specialty Diagnoses / Referred By Referred To Procedures Contact Contact New Request Diagnostic Diagnoses Generalized abdominal pain Lindsey Joy Radiology Procedures CT ABDOMEN PELVIS W CONTRAST RILEY Mo [address] [place] [address] [place] [address] Reason for Visit Reason Comments Abdominal Pain Auth/Cert Status Reason Specialty Diagnoses / Referred By Referred To Procedures Contact Contact Emergency Medicine Ad[facility] Em ergency Dept [address] [place] [address] Fax: Encounter Details Date Type Department Care Team Description 12/23/2019 Emergency ADC-Emergency RufinoLindsey, PAC Generalized abdominal pain (Primary Dx); Department [address] [place] [address] Nasal congestion; [address] [place] [address] [phone] [phone] [place] [address] [phone] Allergies No Known Allergiesdocumented as of this encounter (statuses as of 12/23/2019) Medications Medication Sig Dispensed Refills Start Date End Date Status cephALEXin (KEFLEX) Take 1 capsule 30 capsule 0 12/23/2019 Active 500 mg by mouth 3 capsuleIndications: (three) times Bladder wall daily for 10 thickening days. ondansetron (ZOFRAN Take 1 tablet 10 tablet 0 12/23/2019 Active ODT) 4 mg by mouth every disintegrating 8 (eight) hours tabletIndications: as needed for Generalized abdominal Nausea and pain Vomiting (N/V). dicyclomine 20 mg Take 1 tablet 30 tablet 0 12/23/2019 Active tabletIndications: by mouth 4 Generalized abdominal (four) times pain daily. documented as of this encounter (statuses as of 12/23/2019) Active Problems Problem Noted Date Anemia due to blood loss, chronic 06/09/2018 38 weeks gestation of 06/08/2018 Delayed delivery after SROM (spontaneous rupture of me mbranes) 06/08/2018 Liveborn infant by vaginal delivery 06/08/2018 documented as of this encounter (statuses as of 12/23/2019) Immunizations Name Administration Dates Next Due Meningococcal Polysaccharide (groups A, C, Y and W-135) 05/2016 conjugate vaccine (MCV4P) Rho (d) Immune Globulin 06/09/2018 documented as of this encounter Social History Tobacco Use Types Packs/Day Years Used Date Never Smoker Smokeless Tobacco: Never Used Alcohol Use Drinks/Week oz/Week Comments No Sex Assigned at Date Recorded Not on file COVID-19 Exposure Response Date Recorded In the last month, have you been in contact with No / Unsure 12/23/2019 10:30 AM CDT someone who was confirmed or suspected to have Coronavirus / COVID-19? documented as of this encounter Last Filed Vital Signs Vital Sign Reading Time Taken Comments Blood Pressure 118/90 12/23/2019 1:00 PM CDT Pulse 77 12/23/2019 1:00 PM CDT Temperature 37.3 C (99.1 F) 12/23/2019 10:41 AM CDT Respiratory Rate 20 12/23/2019 1:00 PM CDT Oxygen Saturation 99% 12/23/2019 1:00 PM CDT Inhaled Oxygen Concentration - - Weight 63.5 kg (140 lb) 12/23/2019 10:36 AM CDT Height - - Body Mass Index - - documented in this encounter Discharge Instructions Lindsey Thurman PAC - 12/23/2019Follow up with gynecology as discussed. Return to ER for severe abdominal pain or uncontrolled vomiting Mucinex D for nasal congestion Benadryl or Claritin for runny nose AttachmentsThe following attachments cannot be sent through Care Everywhere. Abdominal Pain, Adult ([facility] [place])documented in this encounter ED Notes Adelina Shaffer RN - 12/23/2019 10:37 AM CDTPatient reports abdominal pain, nausea, and vomiting for a few weeks patient reports that she was seen and diagnosed with coltitis and prescribed pain medication but that it has not helped. Patient reports that she has irrgular periods as well as fibroids that have been causing her pain Patient reports that she only defecates twice a month Patient also reporting a runny nose. With a negative COVID19 test within the last two weeks documented in this encounter Miscellaneous Notes ED Nurse Note - Adelina Shaffer RN - 12/23/2019 1:58 PM CDTPt given printed and verbal discharge instructions Prescriptions provided Keflex Zofran ODT Bentyl Discussed OTC benadryl for runny nose Discussed antibiotic therapy and to take until all completed unless adverse reaction occurs - if occurs, discontinue medication and follow up with pcp/seek medical attention Discussed follow up with gynecology Pt verbalized understanding of instructions, pt awake alert oriented, resp reg unlabored, skin w/d, color appropriate for race, moves all ext well,pt encouraged to follow up with pcp Advised to seek medical attention for new/prolonged/worsening of symptoms, No adverse reaction to meds given in ER noted upon discharge PIV d'cd, dressing to site, catheter in tact. Awake, alert oriented, resp reg unlabored, skin w/d, pt leaving amb with steady gait, in no apparent distress, documented in this encounter Plan of Treatment Name Type Priority Associated Diagnoses Date/Ti me CT ABDOMEN PELVIS W IMAGING STAT Generalized abdominal 12/23/2019 12:19 PM CONTRAST pain CDT Name Type Priority Associated Diagnoses Order S chedule URINE CULTURE LAB Routine Generalized abdominal pain ONCE for 1 Occurrences starting 2019 until 12/23/2019 Health Maintenance Due Date Last Done Comments VARICELLA VACCINES (1 of 2 - 05/09/1999 2-dose childhood series) MENINGOCOCCAL B VACCINES (1 of 2 - 2008 Risk Bexsero 2-dose series) HPV VACCINES (1 - 2-dose series) 2009 Depression Screening 2010 CHLAMYDIA SCREENING 2014 DTaP,Tdap,and Td Vaccines (1 - 2017 Tdap) WELL CARE VISIT: 12-21 YEARS 12/08/2017 12/08/2016 (yearly) PAP SMEAR 05/09/2019 INFLUENZA VACCINE (#1) 2019 MENINGOCOCCAL VACCINE Completed 12/08/2016 PNEUMOCOCCAL 0-64 YEARS COMBINED Aged Out No longer eligible based on SERIES patient's age to complete this topic documented as of this encounter Procedures Procedure Name Priority Date/Time Associated Diagnosis Comme nts CT ABDOMEN PELVIS W STAT 12/23/2019 12:19 PM Generalized ab dominal CONTRAST CDT pain Procedure Note - [facility], Radia nt Results Inft User - 12/23/2019 1:20 PM CDT EXAM: CT ABDOMEN/PELVIS WITH CONTRAST HISTORY: Abd infection (inc l peritonitis) COMPARISON: None. TECHNIQUE AND FINDINGS: Cont iguous axial imaging from the level of the lung bases through the proximal t highs was performed after the administration of 120 cc of intravenous Omnip aque contrast. Coronal and sagittal reconstructions were obtaine d. Auto mA and/or iterative reconstruction were used to reduce radiatio n dose. FINDINGS: LOWER THORAX: The lungs base s are clear. No cardiomegaly. LIVER: No focal hepatic lesi ons. Normal contour. Focal fatty infiltration along the falciform ligament . GALLBLADDER AND BILIARY TREE : No biliary ductal dilation. No gallbladder wall thickening. SPLEEN: No splenomegaly. A 1 .1 cm splenule is seen at the splenic hilum. PANCREAS: No ductal dilation or masses. ADRENAL GLANDS: No adrenal n odules. KIDNEYS: No hydronephrosis, stones, or masses. PERITONEUM AND RETROPERITONE UM: No free air or fluid. LYMPH NODES: No lymphadenopa thy. GI TRACT: No dilation or wal l thickening. The appendix is normal. PELVIS/BLADDER: The urinary bladder is moderately decompressed. Mild urinary bladder wall thicken ing is seen anteriorly (6:58). The uterus contains a 1.9 cm hypodensit y at the fundus, likely a leiomyoma (6:53). The right ovary contains a 1.9 c m hypodensity, close to fluid attenuation, likely ovarian cyst. VESSELS: Unremarkable. BONES AND SOFT TISSUES: No s uspicious lytic or sclerotic bony lesions. IMPRESSION 1. No acute intra-abdominal process. 2. Mild urinary bladder wal l thickening at the anterior aspect of the bladder. In the appropriate clinical setting, this may represent cystitis. Preliminary Report Dictated by Resident: Sully Castañeda URINALYSIS STAT 12/23/2019 11:05 AM Generalized Results for this CDT abdominal pain procedure are in the results section. CBC WITH DIFF STAT 12/23/2019 11:05 AM Generalized Results for this CDT abdominal pain procedure are in the results section. COMP. METABOLIC STAT 12/23/2019 11:05 AM Generalized Resul ts for this PANEL ([id number]) CDT abdominal pain procedure ar e in the results section. MAGNESIUM STAT 12/23/2019 11:05 AM Generalized Results for this CDT abdominal pain procedure are in the results section. LIPASE STAT 12/23/2019 11:05 AM Generalized Results for this CDT abdominal pain procedure are in the results section. POCT TEST GENIA 12/23/2019 10:49 AM Generalized R esults for this CDT abdominal pain procedure are in the results section. NOTICE OF PRIVACY Routine 12/23/2019 10:25 AM PRACTICES CDT documented in this encounter Results URINALYSIS (12/23/2019 11:05 AM CDT) Pathologist Sig nature APPEARANCE Hazy (A) Clear [facility] COLOR Yellow Yellow [facility] PH 6.0 4.8 - 8.0 [facility] SP GRAVITY 1.013 1.003 - 1.030 [facility] GLU U QUAL Normal Normal [facility] BLOOD 3+ (A) Negative [facility] KETONES Negative Negative [facility] PROTEIN Negative Negative [facility] UROBILIN 2.0 mg/dL (A) Normal [facility] BILIRUBIN Negative Negative [facility] NITRITE Negative Negative [facility] LEUK LES Negative Negative [facility] RBC/HPF 106 (H) 0 - 3 HPF [facility] WBC/HPF 5 0 - 5 HPF [facility] BACTERIA Few (A) Negative [facility] MUCOUS Moderate (A) Negative LPF [facility] SQ EPITH 4 HPF [facility] Specimen Urine - URINE, CLEAN CATCH Performing Organization Address [facility] Phone Number [facility] CLIA: [id number] [place] [address] MAGNESIUM (12/23/2019 11:05 AM CDT) Pathologist Sig nature MAGNESIUM 1.9 1.7 - 2.4 mg/dL [facility] Specimen Blood - VENOUS Performing Organization Address [facility] Phone Number [facility] CLIA: [id number] [place] [address] LIPASE (12/23/2019 11:05 AM CDT) Pathologist Sig nature LIPASE 20 0 - 220 U/L [facility] Specimen Blood - VENOUS Performing Organization Address [facility] Phone Number [facility] CLIA: [id number] [place] [address] COMP. METABOLIC PANEL ([id number]) (12/23/2019 11:05 AM CDT) Pathologist Sig nature NA 139 135 - 145 [facility] mmol/L [facility] K 4.0 3.5 - 5.0 [facility] mmol/L [facility] CL 104 98 - 108 mmol/L [facility] CO2 TOTAL 24 23 - 31 mmol/L [facility] AGAP 11 2 - 16 [facility] BUN 5 (L) 7 - 23 mg/dL [facility] GLUCOSE 87 70 - 110 mg/dL [facility] CREATININE 0.88 0.50 - 1.04 [facility] mg/dL [facility] TOTAL BILI 1.2 (H) 0.1 - 1.1 mg/dL [facility] CALCIUM 9.2 8.6 - 10.6 [facility] mg/dL [facility] T PROTEIN 7.6 6.3 - 8.2 g/dL [facility] ALBUMIN 4.2 3.5 - 5.0 g/dL [facility] ALK PHOS 62 34 - 122 U/L [facility] ALTv 10 5 - 35 U/L [facility] AST(SGOT) 28 13 - 40 U/L [facility] eGFR Calculation 81.1 mL/min/1.73m2 [facility] ([facility]AT[facility] [place]e) eGFR Calculation 98.3 mL/min/1.73m2 [facility] () [facility] Specimen Blood - VENOUS Narrative Performed At Association of Glomerular Filtration Rate (GFR) [facility] and Staging of Kidney Disease* + + +- + | GFR (mL/min/1.73 m2) | With Kidney Damage | Without Kidney Damage + + +- + | >90 | Stage one | Normal + + +- + | 60-89 | Stage two | Decreased GFR + + +- + | 30-59 | Stage three | Stage three + + +- + | 15-29 | Stage four | Stage four + + +- + | <15 (or dialysis) | Stage five | Stage five + + +- + *Each stage assumes the associated GFR level has been in effect for at least three months. Stages 1 to 5, with or without kidney disease, indicate chronic kidney disease. Notes: Determination of stages one and two (with eGFR >59mL/min/1.73 m2) requires estimation of kidney damage for at least three months as defined by structural or functional abnormalities of the kidney, manifested by either: Pathological abnormalities or Markers of kidney damage (including abnormalities in the composition of the blood or urine or abnormalities in imaging tests). Performing Organization Address City/State/Zipcode Phone Number [facility] CLIA: [id number] [place] [address] CBC WITH DIFF (12/23/2019 11:05 AM CDT) [facility] nature WBC 8.65 4.30 - 11.10 [facility] 10*3/L [facility] RBC 4.56 3.93 - 5.25 [facility] 10*6/L [facility] HGB 12.6 11.6 - 15.0 [facility] g/dL [facility] HCT 38.7 35.7 - 45.2 % [facility] MCV 84.9 80.6 - 95.5 fL [facility] MCH 27.6 25.9 - 32.8 pg [facility] MCHC 32.6 31.6 - 35.1 [facility] g/dL [facility] RDW-SD 52.3 (H) 39.0 - 49.9 fL [facility] RDW-CV 17.0 (H) 12.0 - 15.5 % [facility] PLT 273 166 - 358 [facility] 10*3/L [facility] MPV 10.1 9.5 - 12.9 fL [facility] NRBC/100 WBC 0.0 0.0 - 10.0 /100 [facility] WBCs [facility] NRBC x10^3 <0.01 10*3/L [facility] GRAN MAT (NEUT) % 77.6 % [facility] IMM GRAN % 0.50 % [facility] LYMPH % 11.1 % [facility] MONO % 4.5 % [facility] EOS % 6.1 % [facility] BASO % 0.2 % [facility] GRAN MAT x10^3(ANC) 6.71 1.88 - 7.09 [facility] 10*3/uL [facility] IMM GRAN x10^3 0.04 0.00 - 0.06 [facility] 10*3/uL [facility] LYMPH x10^3 0.96 (L) 1.32 - 3.29 [facility] 10*3/uL [facility] MONO x10^3 0.39 0.33 - 0.92 [facility] 10*3/uL [facility] EOS x10^3 0.53 (H) 0.03 - 0.39 [facility] 10*3/uL [facility] BASO x10^3 <0.03 0.01 - 0.07 [place] [address]*3/uL [facility] Specimen Blood - VENOUS Performing Organization Address City/State/Zipcode Phone Number [facility] CLIA: [id number] [place], [place] [id number] LABORATORY [address] POCT TEST (12/23/2019 10:49 AM CDT) Pathologist Sig nature POCT PREG negative On board controls acceptable present with C Line POCT PREG LOT # [id number] POCT PREG TEST DATE 2021-06-05 Specimen Urine - URINE, CLEAN CATCH documented in this encounter Visit Diagnoses Diagnosis Generalized abdominal pain - Primary Abdominal pain, generalized Nasal congestion Other diseases of nasal cavity and sinus es Bladder wall thickening Other specified disorders of bladder documented in this encounter Administered Medications Medication Order MAR Action Action Date Dose Rate Site cephALEXin (KEFLEX) capsule 500 Given 12/23/2019 1:49 PM CDT 50 0 mg mg 500 mg, Oral, ONCE, 1 dose, 12/23/19 at 1445, GENIA, Reason for Anti-Infective: Empiric Therapy for Suspected Infection, Empiric Therapy Site: Urine, Duration of therapy: 7 days dicyclomine (BENTYL) capsule 20 mg Given 12/23/2019 1:49 PM CDT 20 mg 20 mg, Oral, ONCE, 1 dose, 12/23/19 at 1445, Routine iohexol (OMNIPAQUE 350 BULK-150 mL) Given 12/23/2019 12:20 PM CD T 120 mL injection 120 mL 120 mL, Intravenous, ONCE, 1 dose, 12/23/19 at 1230, Routine morpHINE injection 4 mg Given 12/23/2019 12:01 PM CDT 4 mg 4 mg, Slow IV Push, ONCE, 1 dose, 12/23/19 at 1300, STAT NaCl 0.9% (NS) bolus infusion New Bag 12/23/2019 11:05 AM CDT 1,000 mL 999 mL/hr 1,000 mL at 999 mL/hr, 1,000 mL, IV Infusion, ONCE, 1 dose, 12/23/19 at 1200, STAT ondansetron (ZOFRAN (PF)) injection 4 mg Given 12/23/2019 11:05 AM CDT 4 mg 4 mg, Slow IV Push, ONCE, 1 dose, 12/23/19 at 1200, GENIA ondansetron (ZOFRAN (PF)) injection 4 mg Given 12/23/2019 12:01 PM CDT 4 mg 4 mg, Slow IV Push, ONCE, 1 dose, 12/23/19 at 1300, GENIA documented in this encounter Advance Directives Name Relationship Healthcare Agent Communication Relationship Sally Rosario [facility] Care Agent "
--- OUTSIDE RECORDS SUMMARY | 2020-01-30 18:45 | XMS REPORT | Continuity of Care Document ---
:2000 Author Organization [facility] t Address [address] [place] [address] Care Team Providers Name Role Phone Pcp Primary Care Physician Unavailable Teena Nolasco MD Attending Clinician Anderson ROB Attending Clinician TEENA NOLASCO Attending Clinician Unavailable Chely Becerra Attending Clinician Doctor Unassigned, Name Attending Clinician Unavailable ANDERSON Admitting Clinician Unavailable Problems Condition Condition Condition Status Onset Resolution Last Treating Co mments Source Name Details Category Date Date Treatment Clinician Date Bilateral Bilateral Disease Active 2019-[address] [facility] pulmonary pulmonary 0-19 [facility] - embolism embolism 00:00: Medica l 00 Center Allergies, Adverse Reactions, Alerts This patient has no known allergies or adverse reactions. Social History Social Habit Start Date Stop Date Quantity Comments Source Sex Assigned At [facility] Tobacco use and 2019-12-25 2019-12-25 Never used [facility] - exposure 00:00:00 00:00:00 [facility] Center Alcohol intake 2019-12-25 2019-12-25 [facility] Smoking Status Start Date Stop Date Source Never smoker [facility] Medications Ordered Filled Start Stop Current Ordering Indication Dosage Frequency Signature Comments Components Source Medication Medication Date Date Medication? Clinician (SIG) Name Name clindamycin 2019-03 Yes 150mg [id number] Take [address] [facility] (CLEOCIN) 0-20 [id number] mg by Daina es - 150 MG 14:55: 3D mouth 3 Medical capsule 46 (three) Center times daily. acetaminoph 2019-03 Yes 1{tbl} Take [address] en-codeine 0-20 tablet by Luke s - (Tylenol-Co 00:00: mouth Medic al deine #3) 00 every 6 Center 300-30 mg (six) per tablet hours as needed for Pain. Max Daily Amount: 4 tablets apixaban 2019-03- Yes Take [address] [facility] (ELIQUIS) 5 0-20 11-26 tablets Luke s - mg Tab 00:00: 23:59 (10 mg Medical tablet 00 :00 total) by Center mouth 2 (two) times daily for 7 days, THEN 1 tablet (5 mg total) 2 (two) times daily for 30 days. rivaroxaban 2019-03- No 15mg Take [address] [facility] (XARELTO) 0-20 10-20 tablet (15 Daina es - 15 mg Tab 00:00: 00:00 mg total) Me dical tablet 00 :00 by mouth 2 Center (two) times daily with breakfast and dinner for 21 days Take 15 mg twice a day with food for 21 days, then start the 20 mg tablet once a day with food.. rivaroxaban 2019-03- No 20mg Take [address] [facility] (XARELTO) 0-20 10-20 tablet (20 Daina es - 20 mg Tab 00:00: 00:00 mg total) Me dical tablet 00 :00 by mouth Center daily with dinner Start after finishing the 15 mg tablet twice a day for 21 days. clindamycin 2019-03- No 150mg Q.[id number] Take [address] [facility] (CLEOCIN) 0-19 10-19 [id number] mg by Jesica kes - 150 MG 22:19: 00:00 3D mouth 3 Medical capsule 27 :00 (three) Center times daily. Vital Signs Vital Name Observation Time Observation Value Comments Source Systolic blood 2019-12-26 07:00:00 117 mm[Hg] [facility] Diastolic blood 2019-12-26 07:00:00 72 mm[Hg] [facility] Heart rate 2019-12-26 07:00:00 79 /min [facility] Body temperature 2019-12-26 07:00:00 36.72 Britta [facility] Respiratory rate 2019-12-26 07:00:00 16 /min [facility] Oxygen saturation in 2019-12-26 07:00:00 100 /min [facility] Arterial blood by Medical Ce nter Pulse oximetry Body height 2019-12-25 23:00:00 170.2 cm [facility] Body weight 2019-12-25 23:00:00 83.462 kg [facility] BMI 2019-12-25 23:00:00 28.82 kg/m2 [facility] Procedures Procedure Date / Time Performing Clinician Source Performed BASIC METABOLIC PANEL (7) 2019-12-26 05:00:00 Lacey Barron [facility] MAGNESIUM 2019-12-26 05:00[facility] 2019-12-26 [facility]:00[facility] & AUTO 2019-12-26 05:00:00 [facility] TROPONIN I 2019-12-25 23:02:00 [facility] VENOUS DOPPLER LEGS 2019-12-25 20:30:00 [facility] SARS-COV2/RT-PCR ([facility] & 2019-12-25 18:49:00 [facility] TROPONIN I 2019-12-25 18:49:00 [facility] PT/APTT 2019-12-25 18:49:00 [facility] CT CHEST PE TEST DESIGN 2019-12-25 17:04:00 Jaqui Ordonez [facility] TROPONIN I 2019-12-25 15:51:00 [facility] SCREEN, URINE 2019-12-25 14:39:00 Jaqui Ordonez [facility] COMPREHENSIVE METABOLIC 2019-12-25 13:16:[address] [facility] PANEL [facility] LIPASE 2019-12-25 13:16:00 Stanislav Sinha Pamella [facility] TROPONIN I 2019-12-25 13:16:00 Anderson Lacey [facility] D-DIMER 2019-12-25 13:16:00 Pamella Ordonez [facility] CBC W/PLT COUNT & AUTO 2019-12-25 13:16:[address] [facility] DIFFERENTIAL [facility] ECG 12-LEAD 2019-12-25 13:12:14 Unknown, Hl7 Doctor [facility] XR CHEST 1 VIEW 2019-12-25 13:05:[address] [facility] PORTABLE/BEDSIDE [facility] ED ECG INTERPRETATION 2019-12-25 12:40:14 Stanislav Sinha [facility] REPORT OF PROCEDURE - 2019-12-25 00:00:[address] [facility] ENDOSCOPY SCAN Scanning [facility] Plan of Care Planned Activity Planned Date Details Comments Source Future Scheduled 2019-11-07 INFLUENZA VACCINE (#1) [facility] Test 00:00:00 [code = INFLUENZA Medical Ce nter VACCINE (#1)] Future Scheduled 2019-05-[address] Daina es - Test 00:00:00 malignant neoplasm of [facility] cervix (procedure) [code = 275779465] Future Scheduled [address] [facility] - Test 00:00:00 0-64 YRS (1 of 1 - Medical C enter PPSV23) [code = PNEUMOCOCCAL VACCINE 0-64 YRS (1 of 1 - PPSV23)] Encounters Start End Encounter Admission Attending Care Care Encounter Source Date/Time Date/Time Type Type Clinicians Facility Department ID 2019-12-23 2019-12-23 Emergency Lindsey Joy [facility] [id number] 10:27:00 14:00:00 Chely Peter [id number] [place] [id number] [place] [id number] 2019-12-23 2019-12-23 Orders Doctor DASH [id number] 00:00:00 00:00:00 Only Unassigned, MELIZA [id number] Browns [facility] [id number] Results Test Description Test Time Test Comments Results Result Comments Source Hepatic function panel 2019-12-26 05:58:00 Test Item Value Reference Range Interpretation Comme nts Protein, Total (test code = 6.0 6.0- 8.5 gm/dL 2885-2) Albumin (test code = 92962-2) 3.2 g/dL 3.5-5 L Total Bilirubin (test code = 1.5 mg/dL 0.1-1.2 H 1974-) Bilirubin, Direct (test code = 0.7 mg/dL 0-0.4 H 1967-09) Alkaline Phosphatase (test code = 58 U/L 30-115 6768-6) AST (test code = 1920-8) 17 U/L 5-40 ALT (test code = 1742-6) 10 U/L 5-50 DE (test code = DE) Manager Actuarial ID - ADMINOperator ID - ADMINOperator ID - ADMINOperator ID - ADMINOperator ID - ADMINOperator ID - ADMINOperator ID - ADMIN Lab Interpretation (test code = Abnormal 15757-7) [facility] [id number] 05:58:00 Test Item Value Reference Range Interpretation Comments TOTAL PROTEIN (BEAKER) (test code = 6.0 gm/dL 6.0-8.5 770) ALBUMIN (BEAKER) (test code = 1145) 3.2 g/dL 3.5-5.0 L BILIRUBIN TOTAL (BEAKER) (test code 1.5 mg/dL 0.1-1.2 H = 377) BILIRUBIN DIRECT (BEAKER) (test 0.7 mg/dL 0.0-0.4 H code = 706) ALKALINE PHOSPHATASE (BEAKER) (test 58 U/L 30-115 code = 346) AST (SGOT) (BEAKER) (test code = 17 U/L 5-40 353) ALT (SGPT) (BEAKER) (test code = 10 U/L 5-50 347) Manager Actuarial ID - ADMINOperator ID - ADMINOperator ID - ADMINOperator ID - ADMINOperator ID - ADMINOperator ID - ADMINOperator ID - ADMINBasic metabolic [id number] 05:57:00 Test Item Value Reference Range Interpretation Comments Sodium (test code = 139 meq/L 560-780 5359-2) Potassium (test code 3.1 meq/L 3.6-5.5 L = 2823-3) Chloride (test code 105 meq/L 98-106 = 2075-0) CO2 (test code = 25 meq/L - 2028-9) BUN (test code = 7 mg/dL 10-26 L 3094-0) Creatinine (test 0.77 mg/dL 0.5-1.2 code = 2160-0) Glucose (test code = 94 mg/dL 70-110 2345-7) Calcium (test code = 8.4 mg/dL 8.5-10.5 L 32203-3) EGFR (test code = 115 mL/min/1.73 [place] [address]-2) m NOT ACCURATE CREATININE CLEARANCE IN PREDICTING GLOMERULAR FILTRATION RATE . ESTIMATED GFR I S NOT APPLICABLE FOR DIALYSIS PATIENTS. DE (test code = Manager Actuarial ID - DE) ADMINOperator ID - ADMINOperator ID - ADMINOperator ID - ADMINOperator ID - ADMINOperator ID - ADMINOperator ID - ADMINOperator ID - ADMINOperator ID - ADMINOperator ID - ADMIN Lab Interpretation Abnormal (test code = 14211-6) [facility]2020[facility] 05:57:00 Test Item Value Reference Range Interpretation Comments Magnesium (test code = 1.9 mg/dL 1.5-3 95532-3) DE (test code = DE) Manager Actuarial ID - ADMINOperator ID - ADMINOperator ID - ADMINOperator ID - ADMIN Lab Interpretation Normal (test code = 13789-4) [facility] MET[facility] [id number] 05:57:00 Test Item Value Reference Range Interpretation Comments SODIUM (BEAKER) 139 meq/L 135-148 (test code = 381) POTASSIUM (BEAKER) 3.1 meq/L 3.6-5.5 L (test code = 379) CHLORIDE (BEAKER) 105 meq/L 98-106 (test code = 382) CO2 (BEAKER) (test 25 meq/L code = 355) BLOOD UREA NITROGEN 7 mg/dL 10-26 L (BEAKER) (test code = 354) CREATININE (BEAKER) 0.77 mg/dL 0.50-1.20 (test code = 358) GLUCOSE RANDOM 94 mg/dL 70-110 (BEAKER) (test code = 652) CALCIUM (BEAKER) 8.4 mg/dL 8.5-10.5 L (test code = 697) EGFR (BEAKER) (test 115 mL/min/1.73 ESTIM ATED GFR IS code = 1092) sq m NOT ACCURATE CREATININE CLEARANCE IN PREDICTING GLOMERULAR FILTRATION RATE . ESTIMATED GFR I S NOT APPLICABLE FOR DIALYSIS PATIEN TS. Manager Actuarial ID - ADMINOperator ID - ADMINOperator ID - ADMINOperator ID - ADMINOperator ID - ADMINOperator ID - ADMINOperator ID - ADMINOperator ID - ADMINOperator ID - ADMINOperator ID - [id number] 05:57:00 Test Item Value Reference Range Interpretation Comments MAGNESIUM (BEAKER) (test code = 1.9 mg/dL 1.5-3.0 627) Manager Actuarial ID - ADMINOperator ID - ADMINOperator ID - ADMINOperator ID - ADMINCBC with platelet count + automated [id number] 05:46:00 Test Item Value Reference Range Interpretation Comments WBC (test code = 6690-2) 6.9 4.0- 10.0 K/L RBC (test code = 789-8) 3.46 4.00- 5.00 M/L L MCHC (test code = 786-4) 30.4 32.0- 36.0 GM/DL L Hematocrit (test code = 4544-3) 29.6 % 36-46 L MCV (test code = 787-2) 85.5 fL 82-99 MCH (test code = 785-6) 26.0 pg 27-33 L RDW (test code = 788-0) 13.9 % 12-15 Platelets (test code = 777-3) 260 150- 430 K/CU MM MPV (test code = 20023-0) 11.1 fL 6-11.5 nRBC (test code = 413) 0 0- 0 /100 WBC % Neutros (test code = 429) 61 % % Lymphs (test code = 430) 29 % % Monos (test code = 431) 10 % % Eos (test code = 432) 0 % % Baso (test code = 437) 0 % # Neutros (test code = 670) 4.20 1.80- 8.00 K/L # Lymphs (test code = 414) 2.00 1.48- 4.50 K/L # Monos (test code = 415) 0.67 0.00- 1.30 K/L # Eos (test code = 416) 0.02 0.00- 0.50 K/L # Baso (test code = 417) 0.01 0.00- 0.20 K/L Immature Granulocytes-Relative 0 % 0-0 (test code = 2801) Lab Interpretation (test code = Abnormal 00171-2) [facility] W/PLT COUNT & AUTO [id number] 05:46:00 Test Item Value Reference Range Interpretation Comments WHITE BLOOD CELL COUNT (BEAKER) 6.9 K/ L 4.0-10.0 (test code = 775) RED BLOOD CELL COUNT (BEAKER) 3.46 M/ L 4.00-5.00 L (test code = 761) HEMOGLOBIN (BEAKER) (test code = 9.0 GM/DL 12.0-15.5 L 410) HEMATOCRIT (BEAKER) (test code = 29.6 % 36.0-46.0 L 411) MEAN CORPUSCULAR VOLUME (BEAKER) 85.5 fL 82.0-99.0 (test code = 753) MEAN CORPUSCULAR HEMOGLOBIN 26.0 pg 27.0-33.0 L (BEAKER) (test code = 751) MEAN CORPUSCULAR HEMOGLOBIN CONC 30.4 GM/DL 32.0-36.0 L (BEAKER) (test code = 752) RED CELL DISTRIBUTION WIDTH 13.9 % 12.0-15.0 (BEAKER) (test code = 412) PLATELET COUNT (BEAKER) (test 260 K/CU MM 150-430 code = 756) MEAN PLATELET VOLUME (BEAKER) 11.1 fL 6.0-11.5 (test code = 754) NUCLEATED RED BLOOD CELLS 0 /100 WBC 0-0 (BEAKER) (test code = 413) NEUTROPHILS RELATIVE PERCENT 61 % (BEAKER) (test code = 429) LYMPHOCYTES RELATIVE PERCENT 29 % (BEAKER) (test code = 430) MONOCYTES RELATIVE PERCENT 10 % (BEAKER) (test code = 431) EOSINOPHILS RELATIVE PERCENT 0 % (BEAKER) (test code = 432) BASOPHILS RELATIVE PERCENT 0 % (BEAKER) (test code = 437) NEUTROPHILS ABSOLUTE COUNT 4.20 K/ L 1.80-8.00 (BEAKER) (test code = 670) LYMPHOCYTES ABSOLUTE COUNT 2.00 K/ L 1.48-4.50 (BEAKER) (test code = 414) MONOCYTES ABSOLUTE COUNT (BEAKER) 0.67 K/ L 0.00-1.30 (test code = 415) EOSINOPHILS ABSOLUTE COUNT 0.02 K/ L 0.00-0.50 (BEAKER) (test code = 416) BASOPHILS ABSOLUTE COUNT (BEAKER) 0.01 K/ L 0.00-0.20 (test code = 417) IMMATURE GRANULOCYTES-RELATIVE 0 % 0-0 PERCENT (BEAKER) (test code = 2801) Troponin [id number] 23:30:00 Test Item Value Reference Range Interpretation Comments Troponin I (test code = <0.03 0-0.15 30853-1) DE (test code = DE) Troponin I (TnI) levels must be interpreted in the context of the presenting symptoms and the clinical findings. Elevated TnI levels indicate myocardial damage, but are not specific for ischemic heart disease. Elevated TnI levels are seen in patients with other cardiac conditions (including myocarditis and congestive heart failure), and slight TnI elevations occur in patients with other conditions, including sepsis, renal failure, acidosis, acute neurological disease, and persistent tachyarrhythmia.Opera tor ID - ADMIN Lab Interpretation (test Normal code = 52332-6) [facility] [id number] 23:30:00 Test Item Value Reference Range Interpretation Comments TROPONIN I (BEAKER) (test code = 397) < ng/mL 0.00-0.15 Troponin I (TnI) levels must be interpreted in the context of the presenting symptoms and the clinical findings. Elevated TnI levels indicate myocardial damage, but are not specific for ischemic heart disease. Elevated TnI levels are seen in patients with other cardiac conditions (including myocarditis and congestive heart failure), and slight TnI elevations occur in patients with other conditions, including sepsis, renal failure, acidosis, acute neurological disease, and persistent tachyarrhythmia.Manager Actuarial ID - ADMINVENOUS DOPPLER LEGS, [id number] 21:06:00Reason for exam:->eval for DVTs [facility] : 2000 Sex: FFINAL REPORT VENOUS DOPPLER LEGS, BILATERAL INDICATION: eval for DVTs. Bilateral PE seen on CT PA. COMPARISON: None TECHNIQUE: Real time gilman-scale, color, and spectral Doppler imaging of the bilateral lower extremity venous system. FINDINGS: Thigh: Normal compressibility and color Doppler flow within the common femoral, superficial femoral, and popliteal veins bilaterally. Calf: Normal compressibility is demonstrated within the peroneal and posterior tibial veins bilaterally. Additional findings: None. IMPRESSION: No Doppler or grayscale evidence for deep venous thrombosis bilaterally. Signed: Agustin Manzano MDRhospital for special care Verified Date/Time: 12/25/2019 21:06:22 Venous doppler legs [id number] 21:06:00Interface, External Ris In - 12/25/2019 9:08 PM CDTFINAL REPORT VENOUS DOPPLER LEGS, BILATERAL INDICATION: eval for DVTs. Bilateral PE seen on CT PA. COMPARISON: None TECHNIQUE: Real time gilman-scale, color, and spectral Doppler imaging of the bilateral lower extremity venous system. FINDINGS: Thigh: Normal compressibility and color Doppler flow within the common femoral, superficial femoral, and popliteal veins bilaterally. Calf: Normal compressibility is demonstrated within the peroneal and posterior tibial veins bilaterally. Additional findings: None. IMPRESSION: No Doppler or grayscale evidence for deep venous thrombosis bilaterally. Signed: Agustin Manzano MDReport Verified Date/Time: 12/25/2019 21:06:22 [id number] 20:06:00 Test Item Value Reference Interpretation Comments Range Protime (test code = 13.0 9.3- 12.0 H Final 5902-2) seconds Information (Auto Output) INR (test code = 1.21 <=5.90 Final 6301-6) Information (Auto Output) PTT (test code = 22.2 23.0- 35.0 L Final 21874-2) seconds Information (Auto Output) DE (test code = RECOMMENDED DE) COUMADIN/WARFARIN INR THERAPY RANGESSTANDARD DOSE: 2.0 - 3.0 Includes: PROPHYLAXIS for venous thrombosis, systemic embolization; TREATMENT for venous thrombosis and/or pulmonary embolus.HIGH RISK: Target INR is 2.5-3.5 for patients with mechanical heart valves. Lab Interpretation Abnormal (test code = 35406-8) [facility][id number] 20:06:00 Test Item Value Reference Range Interpretation Comments PROTIME (BEAKER) (test 13.0 seconds 9.3-12.0 H Final Information code = 759) (Auto Output) INR (BEAKER) (test 1.21 <=5.90 Final Inf ormation code = 370) (Auto Output) PARTIAL THROMBOPLASTIN 22.2 seconds 23.0-35.0 L Final Information TIME (BEAKER) (test (Auto Ou tput) code = 760) RECOMMENDED COUMADIN/WARFARIN INR THERAPY RANGESSTANDARD DOSE: 2.0 - 3.0 Includes: PROPHYLAXIS forvenous thrombosis, systemic embolization; TREATMENT for venous thrombosis and/or pulmonary embolus.HIGH RISK: Target INR is 2.5-3.5 for patients with mechanical heart valves.SARS-CoV2/RT-PCR (Asymptomatic ONLY) 2019-12-25 19:52:00 Test Item Value Reference Range Interpretation Comments SARS-COV2/RT-PCR (test code Negative Not Detected, Negative, = 69142-1) See external report for linked test SARS-COV-2 PERFORMING LAB SL (test code = 79064-9) [facility])2019-12-25 19:52:00 Test Item Value Reference Range Interpretation Comments SARS-COV2/RT-PCR (test code Negative Not Detected, Negative, = 8143798) See external report for linked test SARS-COV-2 PERFORMING LAB SL (test code = 6522615) TROPONIN [id number] 19:29:00 Test Item Value Reference Range Interpretation Comments TROPONIN I (BEAKER) (test code = 397) < ng/mL 0.00-0.15 Troponin I (TnI) levels must be interpreted in the context of the presenting symptoms and the clinical findings. Elevated TnI levels indicate myocardial damage, but are not specific for ischemic heart disease. Elevated TnI levels are seen in patients with other cardiac conditions (including myocarditis and congestive heart failure), and slight TnI elevations occur in patients with other conditions, including sepsis, renal failure, acidosis, acute neurological disease, and persistent tachyarrhythmia.Manager Actuarial ID - ADMINCT, CHEST WITH IV CONTRAST- PE TEST [id number] 17:10:00Reason for exam:->RIB INJURY Is the patient ?->No What is the patient's sedation requirement?->No SedationST. [facility]Name[facility] HOU[facility] Huber : 2000 Sex: FFINAL REPORT CT Chest PE Protocol dated 12/25/2019 Clinical information: PE suspected, high pretest probRIB INJURY Technique: This exam was performed according to our departmental dose-optimization program, which includes automated exposure control, adjustment of the mA and/or kV according to patient size and/or use of interactive reconstruction technique. Precontrast axi al images were obtained at pulmonary trunk level for the purpose of monitoring subsequent IV contrast. Postcontrast axial images of the chest were obtained from above the arch level to the lower chest at maximum enhancement of pulmonary artery. Delayed axial images of the entire chest were obtained subsequently. Coronal and sagittal reformations of the pulmonary arteries were performed. Comment: Heart is normal in size. Greater vessels are unremarkable. Filling defects are seen in the bilateral upper and right lower lobe pulmonary arteries. No adenopathy is noted in the mediastinum or perihilar region. Trachea and mainstem bronchi are patent. Groundglass pulmonary pancreas, disease is seen in the right lower lobe suggestive of a pulmonary infarction. The rest of the lungs are clear. There is trace right pleural effusion. Impression:1. Bilateral upper and right lower lobe pulmonary thromboembolism.2. Right lower lobe pulmonary infarction and trace right pleural effusion. Signed: Taty Wong MDReport Verified Date/Time: 12/25/2019 17:10:11 Reading Location: [facility] C013 Consult Reading Room CT chest for pulmonary [id number] 17:10:00Interface, External Ris In - 12/25/2019 5:[address] Chest PEProtocol dated 12/25/2019 Clinical information: PE suspected, high pretest probRIB INJURY Technique: This exam was performed according to our departmental dose- optimization program, which includes automated exposure control, adjustment of the mA and/or kV according to patient size and/or use of interactive reconstruction technique. Precontrast axial images were obtained at pulmonary trunk level for the purpose of monitoring subsequent IV contrast. Postcontrast axial images of the chest were obtained from above the arch level to the lower chest at maximum enhancement of pulmonary artery. Delayed axial images of the entire chest were obtained subsequently. Coronal and sagittal reformations of the pulmonary arteries were performed. Comment: Heart is normal in size. Greater vessels are unremarkable.Filling defects are seen in the bilateral upper and right lower lobe pulmonary arteries. No adenopathy is noted in the mediastinum or perihilar region. Trachea and mainstem bronchi are patent. Groundglass pulmonary pancreas, disease is seen in the right lower lobe suggestive of a pulmonary infarction.The rest of the lungs are clear. There is trace right pleural effusion. Impression:1. Bilateral upper and right lower lobe pulmonary thromboembolism.2. Right lower lobe pulmonary infarction and trace right pleural effusion. Signed: Taty Wong MDReport Verified Date/Time: 12/25/2019 17:10:11 Reading Location: [address] Consult Reading Room [facility] [id number] 16:31:00 Test Item Value Reference Range Interpretation Comments TROPONIN I (BEAKER) (test code = 397) < ng/mL 0.00-0.15 Troponin I (TnI) levels must be interpreted in the context of the presenting symptoms and the clinical findings. Elevated TnI levels indicate myocardial damage, but are not specific for ischemic heart disease. Elevated TnI levels are seen in patients with other cardiac conditions (including myocarditis and congestive heart failure), and slight TnI elevations occur in patients with other conditions, including sepsis, renal failure, acidosis, acute neurological disease, and persistent tachyarrhythmia.Manager Actuarial ID - ADMINPregnancy Screen, [id number] 14:49:00 Test Item Value Reference Range Interpretation Comments Preg Test, Ur (test code = 2112-1) Negative [facility] S[facility]EN, [id number] 14:49:00 Test Item Value Reference Range Interpretation Comments TEST URINE (BEAKER) (test Negative code = 583) D-dimer, [id number] 14:38:00 Test Item Value Reference Range Interpretation Comments D-Dimer, Quant (test 2.97 <0.50 MG/L FEU H Final Information code = 07391-6) (Auto Output ) DE (test code = REGARDING D-DIMER DE) RESULTS: The 98% NPV (Negative Predictive Value) for DVT/PE exclusion is 0.50 mg/L FEU as suggested by the building wrecker and as approved by the FDA. Lab Interpretation Abnormal (test code = 239[address]-2) [facility] [id number] 14:38:00 Test Item Value Reference Range Interpretation Comments D-DIMER QUANTITATIVE 2.97 MG/L FEU <0.50 H Final Information (BETTY) (test code = (Auto Output) 781) REGARDING D-DIMER RESULTS: The 98% NPV (Negative Predictive Value) for DVT/PE exclusion is 0.50 mg/LFEU as suggested by the building wrecker and as approved by the FDA.[id number] 13:45:00 Test Item Value Reference Range Interpretation Comments Lipase (test code = 33 U/L 3040-3) DE (test code = DE) Manager Actuarial ID - ADMINOperator ID - ADMINOperator ID - ADMINOperator ID - ADMIN Lab Interpretation Normal (test code = 48386-3) [facility] DiegoTROP[facility] [id number] 13:45:00 Test Item Value Reference Range Interpretation Comments TROPONIN I (BETTY) (test code = 397) < ng/mL 0.00-0.15 Troponin I (TnI) levels must be interpreted in the context of the presenting symptoms and the clinical findings. Elevated TnI levels indicate myocardial damage, but are not specific for ischemic heart disease. Elevated TnI levels are seen in patients with other cardiac conditions (including myocarditis and congestive heart failure), and slight TnI elevations occur in patients with other conditions, including sepsis, renal failure, acidosis, acute neurological disease, and persistent tachyarrhythmia.Manager Actuarial ID - [id number] 13:45:00 Test Item Value Reference Range Interpretation Comments LIPASE (BETTY) (test code = 749) 33 U/L Manager Actuarial ID - ADMINOperator ID - ADMINOperator ID - ADMINOperator ID - ADMIN Comprehensive metabolic [id number] 13:44:00 Test Item Value Reference Range Interpretation Comments Protein, Total (test 7.4 6.0- 8.5 gm/dL Speci men code = 2885-2) slightly hemolyzed Albumin (test code = 3.8 g/dL 3.5-5 [place] [address]-0) slightly hemolyzed Alkaline Phosphatase 64 U/L 30-115 (test code = 6768-6) Total Bilirubin 1.7 mg/dL 0.1-1.2 H Specimen (test code = 1975-2) slightl y hemolyzed Sodium (test code = 140 meq/L 489-570 3850-2) Potassium (test code 3.7 meq/L 3.6-5.5 Specime n = 2823-3) slightly hemolyzed Chloride (test code 104 meq/L 98-106 = 2075-0) CO2 (test code = 24 meq/L 20-29 2028-9) BUN (test code = 8 mg/dL 10-26 L 3094-0) Creatinine (test 0.83 mg/dL 0.5-1.2 Specimen code = 2160-0) slightly hemolyzed Glucose (test code = 119 mg/dL 70-110 H 2345-7) Calcium (test code = 8.7 mg/dL 8.5-10.5 55059-0) AST (test code = 20 U/L 5-40 Specimen 1920-8) slightly hemolyzed ALT (test code = 11 U/L 5-50 Specimen 1742-6) slightly hemolyzed EGFR (test code = 105 mL/min/1[place]73 [place] [address]-6) m NOT ACCURATE CREATININE CLEARANCE IN PREDICTING GLOMERULAR FILTRATION RATE . ESTIMATED GFR I S NOT APPLICABLE FOR DIALYSIS PATIENTS. DE (test code = Manager Actuarial ID - DE) ADMINOperator ID - ADMINOperator ID - ADMINOperator ID - ADMINOperator ID - ADMINOperator ID - ADMINOperator ID - ADMINOperator ID - ADMINOperator ID - ADMINOperator ID - ADMINOperator ID - ADMINOperator ID - ADMINOperator ID - ADMINOperator ID - ADMINOperator ID - ADMINOperator ID - ADMIN Lab Interpretation Abnormal (test code = 62197-3) [facility] DiegoCOMPREHENS[facility] METABOLIC [id number] 13:44:00 Test Item Value Reference Range Interpretation Comments TOTAL PROTEIN 7.4 gm/dL 6.0-8.5 Specimen sligh tly (BEAKER) (test code = hemoly zed 770) ALBUMIN (BEAKER) 3.8 g/dL 3.5-5.0 Specimen sl ightly (test code = 1145) hemolyzed ALKALINE PHOSPHATASE 64 U/L 30-115 (BEAKER) (test code = 346) BILIRUBIN TOTAL 1.7 mg/dL 0.1-1.2 H Specimen sli ghtly (BEAKER) (test code = hemoly zed 377) SODIUM (BEAKER) (test 140 meq/L 135-148 code = 381) POTASSIUM (BEAKER) 3.7 meq/L 3.6-5.5 Specimen slightly (test code = 379) hemolyzed CHLORIDE (BEAKER) 104 meq/L 98-106 (test code = 382) CO2 (BEAKER) (test 24 meq/L 20-29 code = 355) BLOOD UREA NITROGEN 8 mg/dL 10-26 L (BEAKER) (test code = 354) CREATININE (BEAKER) 0.83 mg/dL 0.50-1.20 Specimen slightly (test code = 358) hemolyzed GLUCOSE RANDOM 119 mg/dL 70-110 H (BEAKER) (test code = 652) CALCIUM (BEAKER) 8.7 mg/dL 8.5-10.5 (test code = 697) AST (SGOT) (BEAKER) 20 U/L 5-40 Specimen slightly (test code = 353) hemolyzed ALT (SGPT) (BEAKER) 11 U/L 5-50 Specimen slightly (test code = 347) hemolyzed EGFR (BEAKER) (test 105 ESTIMATE D GFR IS code = 1092) mL/min/1.73 sq NOT ACCURA TE m CREATININE CLEARANCE IN PREDICTING GLOMERULAR FILTRATION RATE . ESTIMATED GFR I S NOT APPLICABLE FOR DIALYSIS PATIEN TS. Manager Actuarial ID - ADMINOperator ID - ADMINOperator ID - ADMINOperator ID - ADMINOperator ID - ADMINOperator ID - ADMINOperator ID - ADMINOperator ID - ADMINOperator ID - ADMINOperator ID - ADMINOperator ID- ADMINOperator ID - ADMINOperator ID - ADMINOperator ID - ADMINOperator ID - ADMINOperator ID - ADMI NCBC W/PLT COUNT & AUTO [id number] 13:27:00 Test Item Value Reference Range Interpretation Comments WHITE BLOOD CELL COUNT (BEAKER) 10.1 K/ L 4.0-10.0 H (test code = 775) RED BLOOD CELL COUNT (BEAKER) 4.14 M/ L 4.00-5.00 (test code = 761) HEMOGLOBIN (BEAKER) (test code = 10.8 GM/DL 12.0-15.5 L 410) HEMATOCRIT (BEAKER) (test code = 35.3 % 36.0-46.0 L 411) MEAN CORPUSCULAR VOLUME (BEAKER) 85.3 fL 82.0-99.0 (test code = 753) MEAN CORPUSCULAR HEMOGLOBIN 26.1 pg 27.0-33.0 L (BEAKER) (test code = 751) MEAN CORPUSCULAR HEMOGLOBIN CONC 30.6 GM/DL 32.0-36.0 L (BEAKER) (test code = 752) RED CELL DISTRIBUTION WIDTH 13.8 % 12.0-15.0 (BEAKER) (test code = 412) PLATELET COUNT (BEAKER) (test 317 K/CU MM 150-430 code = 756) MEAN PLATELET VOLUME (BEAKER) 10.7 fL 6.0-11.5 (test code = 754) NUCLEATED RED BLOOD CELLS 0 /100 WBC 0-0 (BEAKER) (test code = 413) NEUTROPHILS RELATIVE PERCENT 81 % (BEAKER) (test code = 429) LYMPHOCYTES RELATIVE PERCENT 14 % (BEAKER) (test code = 430) MONOCYTES RELATIVE PERCENT 4 % (BEAKER) (test code = 431) EOSINOPHILS RELATIVE PERCENT 0 % (BEAKER) (test code = 432) BASOPHILS RELATIVE PERCENT 0 % (BEAKER) (test code = 437) NEUTROPHILS ABSOLUTE COUNT 8.18 K/ L 1.80-8.00 H (BEAKER) (test code = 670) LYMPHOCYTES ABSOLUTE COUNT 1.46 K/ L 1.48-4.50 L (BEAKER) (test code = 414) MONOCYTES ABSOLUTE COUNT (BEAKER) 0.44 K/ L 0.00-1.30 (test code = 415) EOSINOPHILS ABSOLUTE COUNT 0.02 K/ L 0.00-0.50 (BEAKER) (test code = 416) BASOPHILS ABSOLUTE COUNT (BEAKER) 0.02 K/ L 0.00-0.20 (test code = 417) IMMATURE GRANULOCYTES-RELATIVE 0 % 0-0 PERCENT (BEAKER) (test code = 2801) RAD, CHEST, 1 VIEW, NON [id number] 13:21:00Reason for exam:->RIB INJURYShould this be performed at the bedside?->Yes [facility] 2000 Sex: FFINAL REPORT INDICATION: RIB INJURY COMPARISON: None TECHNIQUE: Single frontal view of the chest. FINDINGS: Lungs and pleura: Clear lungs. No effusion.Heart and mediastinum:Normal heart size. Unremarkable mediastinal contours.Osseous structures: No acute abnormality.Other:None. IMPRESSION: No acute intrathoracic abnormality. Signed: JR Osei Robert MDReport Veri fied Date/Time: 12/25/2019 13:21:03 Reading Location: [facility] Radiology Reading Room XR chest 1 view portable / [id number] 13:21:00Interface, External Ris In - 12/25/2019 1:23 PM CDTFINAL REPORT INDICATION: RIB INJURY COMPARISON: None TECHNIQUE: Single frontal view of the chest. FINDINGS: Lungs and pleura: Clear lungs. No effusion.Heart and mediastinum: Normal heart size. Unremarkable mediastinal contours.Osseous structures: No acute abnormality.Other: None. IMPRESSION: No acute intrathoracic abnormality. Signed: JR Osei Robert MDReport Verified Date/Time: 12/25/2019 13:21:03 Reading Location: [facility] Radiology [facility] [id number] 12:40:14Pamella Ordonez NP 12/25/2019 5:53 PMECG/EKG Interpretation Date/Time: 12/25/20191:45 PMPerformed by: Pamella Ordonez NPAuthorized by: Allan Nolasco MD The ECG was interpreted by ED physician. This ECG was not compared with previous ECG(s).The ECG is interpreted as sinus rhythm. Rate is normal rate. Heart rate is 98 BPM.ST segments normal. T waves normal. [place] is normal. Other findings: no other findings. Clinical Impression: normal ECGECG reviewed and doesnot meet STEMI criteria.[facility] [id number] 00:00:00Ordered by an unspecified provider.[facility]
--- OUTSIDE RECORDS SUMMARY | 2020-01-30 18:45 | XMS REPORT | Summary of Care ---
:2000 Author Organization [facility] - Health Address [address] [place] [address] Care Team Providers Name Role Phone Sancho Tenisha Insurance o Encounter Details Date Type Department Care Team Description 12/23/2019 Orders Only [facility] Doctor Unassigned, No [address] [facility] Name [place] [phone] [facility] [place] [phone] Allergies No Known Allergiesdocumented as of this encounter (statuses as of 12/23/2019) Medications No known medicationsdocumented as of this encounter (statuses as of 12/23/2019) Active Problems Problem Noted Date Anemia due to blood loss, chronic 06/09/2018 38 weeks gestation of 06/08/2018 Delayed delivery after SROM (spontaneous rupture of me mbranes) 06/08/2018 Liveborn by vaginal delivery 06/08/2018 documented as of [...] Assigned at Date Recorded Not on file documented as of this encounter Last Filed Vital Signs Not on filedocumented in this encounter Plan of Treatment Health Maintenance Due Date Last Done Comments VARICELLA VACCINES (1 of - 05/09/1999 2-dose childhood series) MENINGOCOCCAL B VACCINES ( - 2008 Risk Bexsero 2-dose series) HPV [...] Name Priority Date/Time Associated Diagnosis Comme nts CONSENT/REFUSAL FOR Routine 12/23/2019 10:24 AM CDT DIAGNOSIS AND TREATMENT documented in this encounter Results Not on filedocumented in this encounter Insurance Payer Benefit Plan / Subscriber ID Effective Phone Address T [facility] Group Dates SCHMITT SCHMITT [id number] 2013-Anastasiya [address] [employer] [place] [id number] MANAGED MEDICAID [place], [place] documented as of this encounter Advance Directives Name Relationship Healthcare Agent Communication Relationship Sally Rosario [facility] Care Agent
--- OUTSIDE RECORDS SUMMARY | 2020-01-30 18:45 | XMS REPORT | Clinical Summary ---
:2000 Author Organization [facility] Address [address] [place] [address] Care Team Providers Name Role Phone Pcp Primary Care Provider Unavailable Allergies No Known Allergies Medications Medication Sig Dispensed Refills Start Date End Date Status clindamycin Take 150 mg by 0 Act mira (CLEOCIN) 150 MG mouth 3 capsule (three) times daily. acetaminophen-cod Take 1 tablet 20 tablet 0 12/26/2019 Active eine by mouth every (Tylenol-Codeine 6 (six) hours #3) 300-30 mg per as needed for tablet Pain. Max Daily Amount: 4 tablets apixaban Take 2 tablets 88 tablet 0 12/26/2019 Acti ve (ELIQUIS) 5 mg (10 mg total) 0 Tab tablet by mouth 2 (two) times daily for 7 days, THEN 1 tablet (5 mg total) 2 (two) times daily for 30 days. clindamycin Take 150 mg by 0 Dis continued (CLEOCIN) 150 MG mouth 3 0 capsule (three) times daily. rivaroxaban Take 1 tablet 42 tablet 0 12/26/2019 Dis continued (XARELTO) 15 mg (15 mg total) 0 (Stop Taking at Tab tablet by mouth 2 Discharg e) (two) times daily with breakfast and dinner for 21 days Take 15 mg twice a day with food for 21 days, then start the 20 mg tablet once a day with food.. rivaroxaban Take 1 tablet 30 tablet 0 12/26/2019 Dis continued (XARELTO) 20 mg (20 mg total) 0 (Stop Taking at Tab tablet by mouth daily Disc harge) with dinner Start after finishing the 15 mg tablet twice a day for 21 days. Active Problems Problem Noted Date Bilateral pulmonary embolism 12/25/2019 Encounters Date Type Specialty Care Team Description 12/25/2019 - Hospital Encounter General Internal Radha Rodríguez pulmonary embolism (HCC) (Primary Dx); 12/26/2019 Medicine Allan Gardner Pleural effusio n; Pulmonary infarct (HCC) Lacey Barron MD 12/25/2019 Orders Only General Internal Medicine 12/25/2019 Travel after 01/29/2019 Social History Tobacco Use Types Packs/Day Years Used Date Never Smoker Smokeless Tobacco: Never Used Alcohol Use Drinks/Week oz/Week Comments Not Currently Sex Assigned at Date Recorded Not on file Last Filed Vital Signs Vital Sign Reading Time Taken Comments Blood Pressure 117/72 12/26/2019 7:00 AM CDT Pulse 79 12/26/2019 7:00 AM CDT Temperature 36.7 C (98.1 F) 12/26/2019 7:00 AM CDT Respiratory Rate 16 12/26/2019 7:00 AM CDT Oxygen Saturation 100% 12/26/2019 7:00 AM CDT Inhaled Oxygen Concentration - - Weight 83.5 kg (184 lb) 12/25/2019 11:00 PM CDT Height 170.2 cm (5' 7") 12/25/2019 11:00 PM CDT Body Mass Index 28.82 12/25/2019 11:00 PM CDT Plan of Treatment Health Maintenance Due Date Last Done Comments PNEUMOCOCCAL VACCINE 0-64 YRS (1 of 1 - PPSV23) 2004 CERVICAL CANCER SCREENING PAP ONLY (Age 21-65) 05/09/2019 INFLUENZA VACCINE (#1) 2019 Procedures Procedure Name Priority Date/Time Associated Comments Diagnosis CBC W/PLT COUNT & AUTO Routine 12/26/2019 5:00 R esults for this DIFFERENTIAL AM CDT procedure are i n the results section. HEPATIC FUNCTION PANEL Routine 12/26/2019 5:00 R esults for this AM CDT procedure are i n the results section. CBC W/PLT COUNT & AUTO Routine 12/26/2019 5:00 R esults for this DIFFERENTIAL AM CDT procedure are i n the results section. MAGNESIUM Routine 12/26/2019 5:00 Results for this AM CDT procedure are i n the results section. BASIC METABOLIC PANEL Routine 12/26/2019 5:00 Re sults for this (7) AM CDT procedure are i n the results section. TROPONIN I STAT 12/25/2019 11:02 Results for this PM CDT procedure are i n the results section. VENOUS DOPPLER LEGS Routine 12/25/2019 8:30 Resu lts for this BILATERAL PM CDT procedure are i n the results section. PT/APTT STAT 12/25/2019 6:49 Results for this PM CDT procedure are i n the results section. TROPONIN I STAT 12/25/2019 6:49 Results for this PM CDT procedure are i n the results section. SARS-COV2/RT-PCR (HS STAT 12/25/2019 6:49 R esults for this & REF LABS) PM CDT procedure are i n the results section. CT CHEST PE TEST STAT 12/25/2019 5:04 Results for this DESIGN PM CDT procedure are i n the results section. TROPONIN I STAT 12/25/2019 3:51 Results for this PM CDT procedure are i n the results section. SCREEN, STAT 12/25/2019 2:39 Result s for this URINE PM CDT procedure are i n the results section. CBC W/PLT COUNT & AUTO STAT 12/25/2019 1:16 R esults for this DIFFERENTIAL PM CDT procedure are i n the results section. D-DIMER STAT 12/25/2019 1:16 Results for this PM CDT procedure are i n the results section. TROPONIN I STAT 12/25/2019 1:16 Results for this PM CDT procedure are i n the results section. LIPASE STAT 12/25/2019 1:16 Results for this PM CDT procedure are i n the results section. COMPREHENSIVE STAT 12/25/2019 1:16 Results fo r this METABOLIC PANEL PM CDT procedure ar e in the results section. CBC W/PLT COUNT & AUTO STAT 12/25/2019 1:16 R esults for this DIFFERENTIAL PM CDT procedure are i n the results section. ECG 12-LEAD Routine 12/25/2019 1:12 PM CDT Procedure Note - Interface, External Ris In - 12/27/2019 3:22 PM CDT Ventricular Rate 98 BPM Atrial Rate 98 BPM P-R Interval 120 ms QRS Duration 72 ms Q-T Interval 324 ms QTC Calculation(Bazett) 413 ms P [place] 70 degrees R [place] 90 degrees T [place] -3 degrees Normal sinus rhythm Rightward axis Abnormal QRS-T angle, consid er primary T wave abnormality Abnormal ECG XR CHEST 1 VIEW STAT 12/25/2019 1:05 PM CDT R esults for this PORTABLE/BEDSIDE procedure a re in the results section . ED ECG INTERPRETATION Routine 12/25/2019 12:40 PM CDT Results for this procedure are i n the results section . REPORT OF PROCEDURE - 12/25/2019 Result s for this ENDOSCOPY SCAN procedure are in the results section . after 01/29/2019 Results CBC with platelet count + automated diff (12/26/2019 5:00 AM CDT)Only the most recent of2 resultswithin the time period is included. Pathologist Sig nature WBC 6.9 4.0 - 10.0 [facility] RBC 3.46 (L) 4.00 - 5.00 [facility] Hemoglobin 9.0 (L) 12.0 - 15.5 [facility] GM[facility]DL [facility] Hematocrit 29.6 (L) 36.0 - 46.0 % [facility] MCV 85.5 82.0 - 99.0 fL [facility] MCH 26.0 (L) 27.0 - 33.0 pg [facility] MCHC 30.4 (L) 32.0 - 36.0 [facility] RDW 13.9 12.0 - 15.0 % [facility] Platelets 260 150 - 430 K/CU [facility] MM [facility] MPV 11.1 6.0 - 11.5 fL [facility] nRBC 0 0 - 0 /100 WBC [facility] % Neutros 61 % [facility] % Lymphs 29 % [facility] % Monos 10 % [facility] % Eos 0 % [facility] % Baso 0 % [facility] # Neutros 4.20 1.80 - 8.00 [facility] # Lymphs 2.00 1.48 - 4.50 [facility] # Monos 0.67 0.00 - 1.30 [facility] # Eos 0.02 0.00 - 0.50 [facility] # Baso 0.01 0.00 - 0.20 [facility] Immature 0 0 - 0 % [facility] Granulocytes[facility]Rel[facility] e Specimen Blood Performing Organization Address City/State/Zipcode Phone Number [facility] [address] [place], [place] [address] Magnesium (12/26/2019 5:00 AM CDT) Pathologist Sig nature Magnesium 1.9 1.5 - 3.0 mg/dL [facility] Specimen Blood Narrative Performed At Retail Team Member ID - ADMIN [facility] Retail Team Member ID - ADMIN Retail Team Member ID - ADMIN Retail Team Member ID - ADMIN Performing Organization Address [facility] Phone Number [facility] [address] [place], [place] [address] Hepatic function panel (12/26/2019 5:00 AM CDT) Pathologist Sig nature Protein, Total 6.0 6.0 - 8.5 gm/dL [facility] Albumin 3.2 (L) 3.5 - 5.0 g/dL [facility] Total Bilirubin 1.5 (H) 0.1 - 1.2 mg/dL [facility] Bilirubin, Direct 0.7 (H) 0.0 - 0.4 mg/dL [facility] Alkaline Phosphatase 58 30 - 115 U/L [facility] AST 17 5 - 40 U/L [facility] ALT 10 5 - 50 U/L [facility] Specimen Blood Narrative Performed At Retail Team Member ID - ADMIN [facility] Retail Team Member ID - ADMIN Retail Team Member ID - ADMIN Retail Team Member ID - ADMIN Retail Team Member ID - ADMIN Retail Team Member ID - ADMIN Retail Team Member ID - ADMIN Performing Organization Address [facility] Phone Number [facility] [address] [place], [place] [address] Basic metabolic panel (12/26/2019 5:00 AM CDT) Sodium 139 135 - 148 meq/L [facility] Potassium 3.1 (L) 3.6 - 5.5 meq/L [facility] Chloride 105 98 - 106 meq/L [facility] CO2 25 20 - 29 meq/L [facility] BUN 7 (L) 10 - 26 mg/dL [facility] Creatinine 0.77 0.50 - 1.20 [facility] mg/dL [facility] Glucose 94 70 - 110 mg/dL [facility] Calcium 8.4 (L) 8.5 - 10.5 [facility] mg/dL [facility] EGFR 115Comment: mL/min/1.73 sq [facility] ESTIMATED GFR IS NOT m [facility] ACCURATE CREATININE CLEARANCE IN PREDICTING GLOMERULAR FILTRATION RATE. ESTIMATED GFR IS NOT APPLICABLE FOR DIALYSIS PATIENTS. Specimen Blood Narrative Performed At Retail Team Member ID - ADMIN [facility] Retail Team Member ID - ADMIN Retail Team Member ID - ADMIN Retail Team Member ID - ADMIN Retail Team Member ID - ADMIN Retail Team Member ID - ADMIN Retail Team Member ID - ADMIN Retail Team Member ID - ADMIN Retail Team Member ID - ADMIN Retail Team Member ID - ADMIN Performing Organization Address [facility]/Zipcode Phone Number [facility] [address] [place], [place] [address] Troponin I (12/25/2019 11:02 PM CDT)Only the most recent of4 resultswithin the time period is included. Pathologist Sig nature Troponin I <0.03 0.00 - 0.15 ng/mL [facility] Specimen Blood Narrative Performed At Troponin I (TnI) levels must be interpreted in the con text of [facility] the presenting symptoms and the clinical findings. Bridget vated TnI levels indicate myocardial damage, but are not specifi c for ischemic heart disease. Elevated TnI levels are seen i n patients with other cardiac conditions (including myoc arditis and congestive heart failure), and slight TnI elevatio ns occur in patients with other conditions, including sepsis, r enal failure, acidosis, acute neurological disease, and per sistent tachyarrhythmia. Retail Team Member ID - ADMIN Performing Organization Address [facility] Phone Number [facility] [address] [place], [place] [address] Venous doppler legs bilateral (12/25/2019 8:30 PM CDT) Specimen Narrative Performed At FINAL REPORT [facility] VENOUS DOPPLER LEGS, BILATERAL INDICATION: eval for DVTs. Bilateral PE seen on CT PA. COMPARISON: None TECHNIQUE: Real time gilman-scale, color , and spectral Doppler imaging of the bilateral lower extremity venous system. FINDINGS: Thigh: Normal compressibility and color Doppler flow within the common femoral, superficial femoral, and popliteal veins bilaterally. Calf: Normal compressibility is demonstr ated within the peroneal and posterior tibial veins bilaterally. Additional findings: None. IMPRESSION: No Doppler or grayscale evidence for dirk p venous thrombosis bilaterally. Signed: Agustin Manzano MD Report Verified Date/Time: 12/25/2019 21:06:22 Procedure Note Interface, External Ris In - 12/25/2019 9:08 PM CDT FINAL REPORT VENOUS DOPPLER LEGS, BILATERAL INDICATION: eval for DVTs. Bilateral PE seen on CT PA. COMPARISON: None TECHNIQUE: Real time gilman-scale, color, and spectral Doppler imaging of the bilateral lower extremity venous system. FINDINGS: Thigh: Normal compressibility and color Doppler flow within the common femoral, superficial femoral, and popliteal veins bilaterally. Calf: Normal compressibility is demonstr ated within the peroneal and posterior tibial veins bilaterally. Additional findings: None. IMPRESSION: No Doppler or grayscale evidence for dirk p venous thrombosis bilaterally. Signed: Agustin Manzano MD Report Verified Date/Time: 12/25/2019 2 1:06:22 Performing Organization Address City/State/Zipcode Phone Number [facility] SARS-CoV2/RT-PCR (Asymptomatic ONLY) (12/25/2019 6:49 PM CDT) SARS-COV2/RT-PCR Negative Not Detected, [facility] Negative, See LABORATORY external report for linked test SARS-COV-2 Comment: [facility] PERFORMING LAB [facility] Specimen Other - Nasopharyngeal wall structure (b mykel structure) Performing Organization Address [facility]/[email or web address] Phone Number [facility] [address] [place], [place] [address] PT/aPTT (12/25/2019 6:49 PM CDT) Protime 13.0 (H)Comment: 9.3 - 12.0 [facility] Final Information seconds LABORATORY (Auto Output) INR 1.21Comment: Final <=5.90 [facility] Information (Auto LABORATORY Output) PTT 22.2 (L)Comment: 23.0 - 35.0 [facility] Final Information seconds LAB[facility] (Auto Output) Specimen Blood Narrative Performed At RECOMMENDED COUMADIN/WARFARIN INR THERAP Y RANGES [facility] STANDARD DOSE: 2.0 - 3.0 Includes: PROPHYLAXIS for venous thrombosis, systemic embolization; TREATMENT for venou s thrombosis and/or pulmonary embolus. HIGH RISK: Target INR is 2.5-3.5 for patients with mec hanical heart valves. Performing Organization Address [facility]/[email or web address] Phone Number [facility] [address] [place], [place] [address] CT chest for pulmonary embolus (12/25/2019 5:04 PM CDT) Specimen Narrative Performed At FINAL REPORT [facility] CT Chest PE Protocol dated 12/25/2019 Clinical information: PE suspected, high pretest prob RIB INJURY Technique: This exam was performed according to our departmental dose-optimization program, which include s automated exposure control, adjustment of the mA and/or kV according to patient size and/or use of interactive reconstruction technique. Precontrast axial images were obtained a t pulmonary trunk level for the purpose of monitoring subsequent IV contrast. Postcontrast axial images of the chest w ere obtained from above the arch level to the lower chest at maximum enhancement of pulmonary artery. Delayed axial images of the enti re chest were obtained subsequently. Coronal and sagittal reformations of the pulmonary arteries were performed. Comment: Heart is normal in size. Greate r vessels are unremarkable. Filling defects are seen in the bilatera l upper and right lower lobe pulmonary arteries. No adenopathy is noted in the mediastinu m or perihilar region. Trachea and mainstem bronchi are patent. Groundglass pulmonary pancreas, disease is seen in the right lower lobe suggestive of a pulmonary infarctio n. The rest of the lungs are clear. There is trace right pleural effusion. Impression: 1. Bilateral upper and right lower lobe pulmonary thromboembolism. 2. Right lower lobe pulmonary infarction and trace right pleural effusion. Signed: Taty Wong MD Report Verified Date/Time: 12/25/2019 17:10:11 Reading Location: [address] Procedure Note Interface, External Ris In - 12/25/2019 5:12 PM CDT FINAL REPORT CT Chest PE Protocol dated 12/25/2019 Clinical information: PE suspected, high pretest prob RIB INJURY Technique: This exam was performed according to our departmental dose-optimization program, which include s automated exposure control, adjustment of the mA and/or kV according to patient size and/or use of interactive reconstruction technique. Precontrast axial images were obtained a t pulmonary trunk level for the purpose of monitoring subsequent IV contrast. Postcontrast axial images of the chest w ere obtained from above the arch level to the lower chest at maximum enhancement of pulmonary artery. Delayed axial images of the enti re chest were obtained subsequently. Coronal and sagittal reformations of the pulmonary arteries were performed. Comment: Heart is normal in size. Greate r vessels are unremarkable. Filling defects are seen in the bilatera l upper and right lower lobe pulmonary arteries. No adenopathy is noted in the mediastinu m or perihilar region. Trachea and mainstem bronchi are patent. Groundglass pulmonary pancreas, disease is seen in the right lower lobe suggestive of a pulmonary infarctio n. The rest of the lungs are clear. There is trace right pleural effusion. Impression: 1. Bilateral upper and right lower lobe pulmonary thromboembolism. 2. Right lower lobe pulmonary infarction and trace right pleural effusion. Signed: Taty Wong MD Report Verified Date/Time: 12/25/2019 1 7:10:11 Reading Location: [facility] [id number] Room Performing Organization Address [facility] Phone Number GE RIS Screen, urine (12/25/2019 2:39 PM CDT) Pathologist Sig nature Preg Test, Ur Negative [facility] Specimen Urine Performing Organization Address [facility] Phone Number [facility] [address] [place], [place] [address] D-dimer, quantitative (12/25/2019 1:16 PM CDT) D-Dimer, Quant 2.97 (H)Comment: <0.50 MG/L [facility] Final Information FEU [facility]ORY (Auto Output) Specimen Blood Narrative Performed At REGARDING D-DIMER RESULTS: The 98% NPV (Negative Predi ctive [facility] Value) for DVT/PE exclusion is 0.50 mg/L [facility] as sugges mary by the junior systems engineer and as approved by the FDA. Performing Organization Address [facility] Phone Number [facility] [address] [place], [place] [address] Lipase (12/25/2019 1:16 PM CDT) Pathologist Sig nature Lipase 33 6 - 51 U/L [facility] Specimen Blood Narrative Performed At Retail Team Member ID - ADMIN [facility] Retail Team Member ID - ADMIN Retail Team Member ID - ADMIN Retail Team Member ID - ADMIN Performing Organization Address [facility]/State/Zipcode Phone Number [facility] [address] [place], [place] [address] Comprehensive metabolic panel (12/25/2019 1:16 PM CDT) Protein, Total 7.4Comment: 6.0 - 8.5 [facility] Specimen slightly gm/dL [facility] hemolyzed Albumin 3.8Comment: 3.5 - 5.0 [facility] [place] Specimen slightly g/dL [facility] hemolyzed Alkaline 64 30 - 115 U/L [facility] Phosphatase [facility] Total Bilirubin 1.7 (H)Comment: 0.1 - 1.2 [facility] Specimen slightly mg/dL [facility] hemolyzed Sodium 140 135 - 148 [facility] [place] meq/L [facility] Potassium 3.7Comment: 3.6 - 5.5 [facility] [place] Specimen slightly meq/L [facility] hemolyzed Chloride 104 98 - 106 [facility] [place] meq/L [facility] CO2 24 20 - 29 meq/L [facility] BUN 8 (L) 10 - 26 mg/dL [facility] Creatinine 0.83Comment: 0.50 - 1.20 [facility] Specimen slightly mg/dL [facility] hemolyzed Glucose 119 (H) 70 - 110 [facility] [place] mg/dL [facility] Calcium 8.7 8.5 - 10.5 [facility] [place] mg/dL [facility] AST 20Comment: 5 - 40 U/L [facility] Specimen slightly [facility] hemolyzed ALT 11Comment: 5 - 50 U/L [facility] Specimen slightly [facility] hemolyzed EGFR 105Comment: mL/min/1.73 [facility] ESTIMATED GFR IS sq m LAB[facility]ATORY NOT ACCURATE CREATININE CLEARANCE IN PREDICTING GLOMERULAR FILTRATION RATE. ESTIMATED GFR IS NOT APPLICABLE FOR DIALYSIS PATIENTS. Specimen Blood Narrative Performed At Retail Team Member ID - ADMIN [facility] Retail Team Member ID - ADMIN Retail Team Member ID - ADMIN Retail Team Member ID - ADMIN Retail Team Member ID - ADMIN Retail Team Member ID - ADMIN Retail Team Member ID - ADMIN Retail Team Member ID - ADMIN Retail Team Member ID - ADMIN Retail Team Member ID - ADMIN Retail Team Member ID - ADMIN Retail Team Member ID - ADMIN Retail Team Member ID - ADMIN Retail Team Member ID - ADMIN Retail Team Member ID - ADMIN Retail Team Member ID - ADMIN Performing Organization Address City/[facility]/Zipcode Phone Number [facility] [address] [place], [place] [address] XR chest 1 view portable / bedside (12/25/2019 1:05 PM CDT) Specimen Narrative Performed At FINAL REPORT [facility] INDICATION: RIB INJURY COMPARISON: None TECHNIQUE: Single frontal view of the est. FINDINGS: Lungs and pleura: Clear lungs. No effusi on. Heart and mediastinum: Normal heart size . Unremarkable mediastinal contours. Osseous structures: No acute abnormality . Other: None. IMPRESSION: No acute intrathoracic abnormality. Signed: JR Osei Robert MD Report Verified Date/Time: 12/25/2019 13:21:03 Reading Location: [facility] [employer] y Reading Room Procedure Note Interface, External Ris In - 12/25/2019 1:23 PM CDT FINAL REPORT INDICATION: RIB INJURY COMPARISON: None TECHNIQUE: Single frontal view of the est. FINDINGS: Lungs and pleura: Clear lungs. No effusi on. Heart and mediastinum: Normal heart size . Unremarkable mediastinal contours. Osseous structures: No acute abnormality . Other: None. IMPRESSION: No acute intrathoracic abnormality. Signed: JR Osei Robert MD Report Verified Date/Time: 12/25/2019 1 3:21:03 Reading [facility] Performing Organization Address City/State/Zipcode Phone Number [facility] ECG/EKG Interpretation (12/25/2019 12:40 PM CDT) Narrative Performed At Pamella Ordonez NP 1 5:53 PM ECG/EKG Interpretation Date/Time: 12/25/2019 1:45 PM Performed by: Pamella Ordonez se, NP Authorized by: Allan Rodríguez MD The ECG was interpreted by ED physician. This ECG was not compared with previous ECG(s).The ECG is interpreted a s sinus rhythm. Rate is normal rate. Heart rate is [address] segments normal. T waves normal. [place] is normal. Other findings: no other findings. Clini damon Impression: normal ECGECG reviewed and does not meet STEMI criteria. EKG-SCANNED (12/25/2019) Narrative Performed At This result has an attachment that is no t available. Ordered by an unspecified provider. after 01/29/2019 Advance Directives For more information, please contact: [phone] Code Status Date Activated Date Inactivated Comments Full Code 12/25/2019 6:09 PM 12/26/2019 4:55 PM This code status was determined by: Patient
[2020-01-30] MEDS ORDERED: IBUPROFEN 400 MG TAB ONE (19:13)
[2020-01-30] MEDS ORDERED: IBUPROFEN 200 MG TAB PO ONE (19:13)
[2020-01-30] MEDS ORDERED: MAGNES/ALUMIN/SIMET 30ML UCUP ONE (19:40)
[2020-01-30] MEDS ORDERED: NA CHLORIDE 0.9% 1,000 ML ONE (19:41)
[2020-01-30] MEDS ORDERED: LIDOCAINE VISCOUS 2% SOLN 15 ML UDC ONE (19:43)
[2020-01-30 19:59] LABS: Absolute Lymphocytes (CBC) 1.4 K/uL (0.7-4.9); Basophils % 0.2 % (0-1.3); Hematocrit 35.8 % (36.0-45.0); Lymphocytes % 11.9 % (15.3-44.8); MPV 8.4 fL (7.6-11.3); RBC Red Blood Cell Count 4.28 M/uL (3.86-4.86)
[2020-01-30 20:17] LABS: BUN Blood Urea Nitrogen 4 mg/dL (7-18); Bicarbonate 21 mmol/L (21-32); Glucose Level 100 mg/dL (74-106); Potassium 3.2 mmol/L (3.5-5.1); Sodium Level 137 mmol/L (136-145)
[2020-01-30 20:20] LABS: Anisocytosis 1+; Blood Morphology Comment NOTED (NOT SEEN); Platelet Estimate ADEQ; White Blood Cell Scan OK (OK)
[2020-01-30] MEDS ORDERED: POTASSIUM CL SA 10 MEQ TAB PO ONE (20:42)
--- NOTE | 2020-01-30 20:55 | EDPHYS ---
Physician Documentation [facility] Name: Golden Gusman Age: 19 yrs Sex: Female : 2000 Arrival Date: 01/30/2020 Time: 18:41 Bed 5 Private MD: ED Physician Michael Wray HPI: 01/29 19:21 This 19 yrs old Black Female presents to ER via Ambulatory with complaints of Sore kb Throat, Headache, Decreased Appetite, Weakness, Shortness Of Breath. 19:21 The patient presents with sore throat. The patient describes throat pain as constant. kb Onset: The symptoms/episode began/occurred 3 day(s) ago. Severity of symptoms: At their worst the symptoms were moderate, in the emergency department the symptoms are unchanged. Modifying factors: The symptoms are alleviated by nothing, the symptoms are aggravated by swallowing, Patient's oral intake status: limited fluid intake, limited food intake. Associated signs and symptoms: Pertinent positives: fever, flu-like symptoms, Sore throat. The patient has not experienced similar symptoms in the past. The patient has not recently seen a physician. Pt reports sore throat, headache, dizziness at times, decreased appetite, no taste, dehydration, body aches that started 3 days ago. 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 - Social history:: Smoking status: Patient denies any tobacco usage or history of. ROS: 19:20 Cardiovascular: Negative for chest pain, palpitations, and edema, Respiratory: Negative kb for shortness of breath, cough, wheezing, and pleuritic chest pain, Abdomen/GI: Negative for abdominal pain, nausea, vomiting, diarrhea, and constipation, MS/Extremity: Negative for injury and deformity, Skin: Negative for injury, rash, and discoloration. 19:20 Constitutional: Positive for body aches, chills, fatigue, fever, malaise, poor PO intake. 19:20 ENT: Positive for sore throat. 19:20 Neuro: Positive for dizziness, headache. Exam: 19:20 Constitutional: This is a well developed, well nourished patient who is awake, alert, kb and in no acute distress. Head/Face: Normocephalic, atraumatic. Chest/axilla: Normal chest wall appearance and motion. Nontender with no deformity. No lesions are appreciated. Cardiovascular: Regular rate and rhythm with a normal S1 and S2. No gallops, murmurs, or rubs. Normal PMI, no JVD. No pulse deficits. Respiratory: Lungs have equal breath sounds bilaterally, clear to auscultation and percussion. No rales, rhonchi or wheezes noted. No increased work of breathing, no retractions or nasal flaring. Abdomen/GI: Soft, non-tender, with normal bowel sounds. No distension or tympany. No guarding or rebound. No evidence of tenderness throughout. Skin: Warm, dry with normal turgor. Normal color with no rashes, no lesions, and no evidence of cellulitis. MS/ Extremity: Pulses equal, no cyanosis. Neurovascular intact. Full, normal range of motion. Neuro: Awake and alert, GCS 15, oriented to person, place, time, and situation. Cranial nerves II-XII grossly intact. Motor strength 5/5 in all extremities. Sensory grossly intact. Cerebellar exam normal. Normal gait. 19:20 ENT: TM's: are normal, Nose: is normal, Posterior pharynx: Airway: normal, Tonsils: bilaterally enlarged, with erythema, with exudate, Uvula: normal, midline, swelling, that is mild, erythema, that is moderate, exudate, that is moderate. Vital Signs: 18:51 BP 131 / 74; Pulse 115; Resp 19 S; Temp 102.3(O); Pulse Ox 100% on R/A; Weight 65.77 kg ca1 (R); Height 5 ft. 7 in. (170.18 cm) (R); 19:55 BP 147 / 101; Pulse 122; Resp 18; Pulse Ox 100% ; ll2 18:51 Body Mass Index 22.71 (65.77 kg, 170.18 cm) ca1 MDM: 18:55 Patient medically screened. kb 19:20 Data reviewed: vital signs, nurses notes. Data interpreted: Pulse oximetry: on room air kb is 100 %. Interpretation: normal. 20:27 Counseling: I had a detailed discussion with the patient and/or guardian regarding: the kb historical points, exam findings, and any diagnostic results supporting the discharge/admit diagnosis, lab results, the need for outpatient follow up, a family practitioner, to return to the emergency department if symptoms worsen or persist or if there are any questions or concerns that arise at home. 01/29 18:43 Order name: Flu; Complete Time: 20:12 kb 01/29 18:43 Order name: Strep; Complete Time: 20:55 kb 01/29 19:10 Order name: CBC with Diff; Complete Time: 20:22 kb 01/29 19:10 Order name: Basic Metabolic Panel; Complete Time: 20:19 kb 01/29 19:10 Order name: [place] Screen Profile; Complete Time: 20:26 kb 01/29 20:20 Order name: CBC Smear Scan; Complete Time: 20:22 EDMS 01/29 19:10 Order name: IV Start; Complete Time: 19:37 kb 01/29 20:55 Order name: Throat Culture EDMS Administered Medications: 19:02 Drug: Ibuprofen 600 mg Route: PO; ca1 20:00 Follow up: Response: No adverse reaction ll2 19:42 Drug: GI Cocktail without - (Maalox Suspension 30 ml, Lidocaine Liquid 2 % 15 ll2 ml) Route: PO; 20:58 Follow up: Response: No adverse reaction ll2 19:43 Drug: NS 0.9% 1000 ml Route: IV; Rate: 1000 ml; Site: left antecubital; ll2 20:37 Drug: Potassium Chloride 40 mEq Route: PO; ll2 20:59 Follow up: Response: No adverse reaction ll2 Disposition: 01/30/20 20:55 Discharged to Home. Impression: Infectious mononucleosis. - Condition is Stable. - Discharge Instructions: Infectious Mononucleosis, [id number]. - Prescriptions for Zofran 4 mg Oral Tablet - take 1 tablet by ORAL route every 6 hours As needed; 20 tablet. - Medication Reconciliation Form, Thank You Letter, Antibiotic Education, Prescription Opioid Use form. - Follow up: Emergency Department; When: As needed; Reason: Worsening of condition. Follow up: Private Physician; When: 2 - 3 days; Reason: Recheck today's complaints, Continuance of care, Re-evaluation by your physician. Addendum: 02/04/2020 21:04 Co-signature as Attending Physician, Michael Wray MD Did not see or evaluate patient. p s1 Signature for administrative purposes. . Signatures: Dispatcher [employer] EDMS Alonso Elisabet, LANGUAGE THERAPIST-C LANGUAGE THERAPIST-Ckb Michael Wray MD MD ps1 Janee Higgins, RN RN ca1 Yolette Tovar RN RN ll2 Corrections: (The following items were deleted from the chart) 01/29 21:11 20:55 01/30/2020 20:55 Discharged to Home. Impression: Infectious mononucleosis. ll2 Condition is Stable. Discharge Instructions: Infectious Mononucleosis, [id number]. Prescriptions for Zofran 4 mg Oral Tablet - take 1 tablet by ORAL route every 6 hours As needed; 20 tablet. and Forms are Medication Reconciliation Form, Thank You Letter, Antibiotic Education, Prescription Opioid Use. Follow up: Emergency Department; When: As needed; Reason: Worsening of condition. Follow up: Private Physician; When: 2 - 3 days; Reason: Recheck today's complaints, Continuance of care, Re-evaluation by your physician. kb
--- NOTE | 2020-01-30 20:55 | ER ---
Nurse's Notes [facility] Name: Golden Gusman Age: 19 yrs Sex: Female : 2000 Arrival Date: 01/30/2020 Time: 18:41 Bed 5 Private MD: Diagnosis: Infectious mononucleosis Presentation: 01/29 18:51 Chief complaint: Patient states: Pus pockets back of my throat, headache on the L side, ca1 SOB, chills and sweat, general weakness, lightheaded x 3 days, and today is the worse I can't eat and I can't taste. 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 Coronavirus screen: Client denies travel out of the [place] in the last 14 days. chills, fatigue, fever, headache, shortness of breath, sore throat, loss of taste or smell, Client presents with at least one sign or symptom that may indicate coronavirus-19. Standard/surgical mask placed on the client. Provider contacted for isolation considerations. The client denies any previous COVID testing. Ebola Screen: Patient negative for fever greater than or equal to 101.5 degrees Fahrenheit, and additional compatible Ebola Virus Disease symptoms Patient denies exposure to infectious person. Patient denies travel to an Ebola-affected area in the 21 days before illness onset. No symptoms or risks identified at this time. Initial Sepsis Screen: Does the patient meet any 2 criteria? Temp <36.0*C (96.8*F)) or > 38.3*C (100.9*F). HR > 90 bpm. Yes. Risk Assessment: Do you want to hurt yourself or someone else? Patient reports no desire to harm self or others. Onset of symptoms was January 30, 2020. 18:51 Method Of Arrival: Ambulatory ca1 18:51 Acuity: ANALIA 2 ca1 19:02 Initial Sepsis Screen: If YES to both, name of provider notified: Elisabet [place].ca1 20:58 Initial Sepsis Screen: Does the patient have a suspected source of infection? No. ll2 Patient's initial sepsis screen is negative. 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 - Social history:: Smoking status: Patient denies any tobacco usage or history of. Screenin:56 Abuse screen: Denies threats or abuse. Nutritional screening: No deficits noted. ll2 Tuberculosis screening: No symptoms or risk factors identified. Fall Risk None identified. Assessment: 19:20 General: Appears in no apparent distress. Behavior is calm, cooperative, appropriate ll2 for age. Pain: Complains of pain in throat. Neuro: Level of Consciousness is awake, alert, obeys commands, Oriented to person, place, time, situation. Cardiovascular: Patient's skin is warm and dry. Respiratory: Airway is patent Respiratory effort is even, unlabored, Breath sounds are clear. GI: No signs and/or symptoms were reported involving the gastrointestinal system. : No signs and/or symptoms were reported regarding the genitourinary system. EENT: Throat is reddened has patchy exudate. Derm: Skin is intact, is healthy with good turgor, Skin is dry, Skin is pink, warm \T\ dry. Skin temperature is warm. Musculoskeletal: Circulation, motion, and sensation intact. Range of motion: intact in all extremities. Vital Signs: 18:51 BP 131 / 74; Pulse 115; Resp 19 S; Temp 102.3(O); Pulse Ox 100% on R/A; Weight 65.77 kg ca1 (R); Height 5 ft. 7 in. (170.18 cm) (R); 19:55 BP 147 / 101; Pulse 122; Resp 18; Pulse Ox 100% ; ll2 18:51 Body Mass Index 22.71 (65.77 kg, 170.18 cm) ca1 ED Course: 18:41 Patient arrived in ED. as 18:42 Elisabet Gupta FNP-C is [facility]. kb 18:42 Michael Wray MD is Attending Physician. kb 18:55 Triage completed. ca1 18:55 Arm band placed on right wrist. ca1 19:12 Yolette Tovar, ELIZABETH is Primary Nurse. ll2 19:20 Patient has correct armband on for positive identification. Call light in reach. Side ll2 rails up X 1. Pulse ox on. NIBP on. 19:35 Inserted saline lock: 20 gauge in left antecubital area, using aseptic technique. Blood ds4 collected. 21:10 No provider procedures requiring assistance completed. IV discontinued, intact, ll2 bleeding controlled, No redness/swelling at site. Pressure dressing applied. Administered Medications: 19:02 Drug: Ibuprofen 600 mg Route: PO; ca1 20:00 Follow up: Response: No adverse reaction ll2 19:42 Drug: GI Cocktail without - (Maalox Suspension 30 ml, Lidocaine Liquid 2 % 15 ll2 ml) Route: PO; 20:58 Follow up: Response: No adverse reaction ll2 19:43 Drug: NS 0.9% 1000 ml Route: IV; Rate: 1000 ml; Site: left antecubital; ll2 20:37 Drug: Potassium Chloride 40 mEq Route: PO; ll2 20:59 Follow up: Response: No adverse reaction ll2 Outcome: 20:55 Discharge ordered by . kb 21:10 Discharged to home ambulatory. ll2 21:10 Condition: stable 21:10 Discharge instructions given to patient, Instructed on discharge instructions, follow up and referral plans. medication usage, Demonstrated understanding of instructions, follow-up care, medications, Prescriptions given X 1. 21:11 Patient left the ED. ll2 Signatures: Elisabet Gupta, DEZC ARIAN-Julieta Mejia Donovan ds4 Janee Higgins RN RN ca1 Yolette Tovar RN RN ll2 Corrections: (The following items were deleted from the chart) 18:57 18:51 Acuity: ANALIA 3 ca1 ca1 18:58 18:51 Chief complaint: Patient states: Pus pockets back of my throat, headache on the L ca1 side, SOB, chills and sweat, general weakness, lightheaded x 3 days, and today is the worse. 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
[2020-01-31 04:09] VITALS: TEMP 102.3; O2SAT 100
[2020-01-31 04:11] VITALS: BP 147/101
== END 2020-01-30 21:11 | disposition home or self-care (01) ==
LOC: ER 18:39
DX: B27.90 Infectious mononucleosis, unspecified without complication (principal)
CPT/HCPCS: 36415; 80048; 85025; 86308; 87070; 87081; 87804; 99284; J7030

== ENCOUNTER 2020-10-08 12:20 | Emergency (ER) | payer OTHER, SELFPAY ==
--- OUTSIDE RECORDS SUMMARY | 2020-10-08 12:24 | XMS REPORT | Continuity of Care Document ---
:2000 Author Organization [facility] t Address 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 Social History Social Habit Start Date Stop Date Quantity Comments Source History [facility] History [facility] Sex Assigned At [facility] History SDOH 2020-06-01 2020-06-01 1 [facility] Frequency 00:00:00 00:00:00 Hospita l Tobacco use and 2019-12-25 2019-12-25 Never used [facility] [place] [facility] kes - exposure 00:00:00 00:00:00 Medical Center Alcohol intake 2019-12-25 2019-12-25 Ex-drinker [facility] es - 00:00:00 00:00:00 (finding) Medical Center Smoking Status Start Date Stop Date Source Never smoker [facility] Medications Ordered Filled Start Stop Current Ordering Indication Dosage Frequency Signature Comments Components Source Medication Medication Date Date Medication? Clinician (SIG) Name Name hydrOXYzine No 25mg Q6H Take 1 Met hodi (ATARAX) 25 3 04-27 tablet (25 s t MG tablet 00:00: 04:59 mg total) Ho spita 00 :00 by mouth l every 6 (six) hours for 30 days. methylPREDN No follow Met hodi ISolone 06-01 04-[address] (MEDROL 00:00: 04:59 directions Hos perla DOSEPAK) 4 00 :00 l mg tablet clindamycin 2019-03 Yes 150mg Q.[id number] Take [address] [facility] [address] (CLEOCIN) 0-20 [id number] mg by Daina es - 150 MG 14:55: 3D mouth 3 Medical capsule 46 (three) Center times daily. acetaminoph 2019-03 Yes 1{tbl} Take [address] en-codeine 0-20 tablet by Luke s - (Tylenol-Co 00:00: mouth Medic al deine #3) 00 every 6 Center 300-30 mg (six) per tablet hours as needed for Pain. Max Daily Amount: 4 tablets apixaban 2019-[address] (ELIQUIS) 5 0-20 11-26 tablets Luke s - mg Tab 00:00: 23:59 (10 mg Medical tablet 00 :00 total) by Center mouth 2 (two) times daily for 7 days, THEN 1 tablet (5 mg total) 2 (two) times daily for 30 days. rivaroxaban 2019-03 No 15mg Take [address] [facility] [address] (XARELTO) 0-20 10-20 tablet (15 Daina es - 15 mg Tab 00:00: 00:00 mg total) Me dical tablet 00 :00 by mouth 2 Center (two) times daily with breakfast and dinner for 21 days Take 15 mg twice a day with food for 21 days, then start the 20 mg tablet once a day with food.. rivaroxaban 2019-03 No 20mg Take [address] [facility] [address] (XARELTO) 0-20 10-20 tablet (20 Daina es - 20 mg Tab 00:00: 00:00 mg total) Me dical tablet 00 :00 by mouth Center daily with dinner Start after finishing the 15 mg tablet twice a day for 21 days. clindamycin 2019-03 150mg Q.25273901 Take 150 [facility] St (CLEOCIN) 12-24 [id number] mg by Jesica kes - 150 MG 22:19: 00:00 3D mouth 3 Medical capsule 27 :00 (three) Center times daily. Vital Signs Vital Name Observation Time Observation Value Comments Source Systolic blood 2020-06-01 17:00:22 119 mm[Hg] [facility] pressure Diastolic blood 2020-06-01 17:00:22 71 mm[Hg] [facility] pressure Heart rate 2020-06-01 17:00:22 81 /min [facility] Body temperature 2020-06-01 17:00:22 37 Britta [facility] Respiratory rate 2020-06-01 17:00:22 18 /min [facility] Oxygen saturation in 2020-06-01 17:00:22 100 /min [facility] Arterial blood by Pulse oximetry Body height 2020-06-01 16:55:00 170.2 cm [facility] Systolic blood 2019-12-26 07:00:00 117 mm[Hg] [facility] Diastolic blood 2019-12-26 07:00:00 72 mm[Hg] [facility] Heart rate 2019-12-26 07:00:00 79 /min [facility] Body temperature 2019-12-26 07:00:00 36.72 Britta [facility] Respiratory rate 2019-12-26 07:00:00 16 /min [facility] Oxygen saturation in 2019-12-26 07:00:00 100 /min [facility] Arterial blood by Medical Ce nter Pulse oximetry Body height 2019-12-25 23:00:00 170.2 cm [facility] Body weight 2019-12-25 23:00:00 83.462 kg [facility] BMI 2019-12-25 23:00:00 28.82 kg/m2 [facility] Procedures Procedure Date / Time Performing Clinician Source Performed BASIC METABOLIC PANEL (7) 2019-12-26 05:00:00 Anderson Lacey [facility] MAGNESIUM 2019-12-26 05:00:00 Barron [facility] CBC W/PLT COUNT & AUTO 2019-12-26 05:00:00 [facility] HEPATIC FUNCTION PANEL 2019-12-26 05:00:00 [facility] TROPONIN I 2019-12-25 23:02:00 [facility] VENOUS DOPPLER LEGS 2019-12-25 20:30:00 [facility] SARS-COV2/RT-PCR ([facility] & 2019-12-25 18:49:00 [facility] TROPONIN I 2019-12-25 18:49:00 [facility] PT/APTT 2019-12-25 18:49:00 Barron [facility] CT CHEST PE TEST DESIGN 2019-12-25 17:04:00 Stanislav Sinha [facility] TROPONIN I 2019-12-25 15:51:00 [facility] SCREEN, URINE 2019-12-25 14:39:[address] [facility] CBC W/PLT COUNT & AUTO 2019-12-25 13:16:00 Stanislav Sinha [facility] COMPREHENSIVE METABOLIC 2019-12-25 13:16:00 Jaqui Ordonez [facility] LIPASE 2019-12-25 13:16:[address] [facility] TROPONIN I 2019-12-25 13:16:00 [facility] D-DIMER 2019-12-25 13:16:[address] [facility] ECG 12-LEAD 2019-12-25 13:12:14 Unknown, Hl7 Doctor [facility] XR CHEST 1 VIEW 2019-12-25 13:05:[address] [facility] - PORTABLE/BEDSIDE [facility] ED ECG INTERPRETATION 2019-12-25 12:40:14 Pamella [facility]donez [facility] REPORT OF PROCEDURE - 2019-12-25 00:00:00 ProviderHyacinth [facility] - ENDOSCOPY SCAN Scanning [facility] Plan of Care Planned Activity Planned Date Details Comments Source Future Scheduled 2019-11-07 INFLUENZA VACCINE (#1) [facility] Test 00:00:00 [code = INFLUENZA Medical Ce nter VACCINE (#1)] Future Scheduled 2019-05-[address] [facility] es - Test 00:00:00 malignant neoplasm of Medica Center cervix (procedure) [code = 691799201] Future Scheduled [address] [facility] - Test 00:00:00 0-64 YRS (1 of 1 - Medical C enter PPSV23) [code = PNEUMOCOCCAL VACCINE 0-64 YRS (1 of 1 - PPSV23)] Encounters Start End Encounter Admission Attending Care Care Encounter Source Date/Time Date/Time Type Type Clinicians Facility Department ID 2020-09-16 2020-09-16 [facility] [id number] 00:00:00 00:00:00 Cleveland Fernandez [facility]ENER 350.1.13.10 [facility] 4.2.7.2.686 MATERNAL [id number] & CHILD [address] [place] [address] 2020-06-01 2020-06-01 Emergency Rivenes, 1.2.840.1 [id number] Methodi 11:57:00 12:45:00 Sylvester Rodriguez [address] 3.430.2.7 Hospit a .3.249393 l .8 2020-06-01 2020-06-01 Travel 1.2.840.1 [id number] [id number] Methodi 00:00:00 00:00:[address] 3.430.2.7 0.2.7.3.698 Ho spita .3.911818 084.8 l .8 2020-06-01 2020-06-01 Emergency [place], [place] [id number] [place] 00:00:00 00:00:00 [place] Results Test Description Test Time Test Comments Results Result Comments Source Hepatic function panel 2019-12-26 05:58:00 Test Item Value Reference Range Interpretation Comme nts Protein, Total (test 6.0 See_Comment [Autom ated message] The code = 2885-2) system which generated this result tra nsmitted reference range : 6.0 - 8.5 gm/dL. The reference range was not u sed to interpret this result as normal/abnormal . Albumin (test code = 3.2 g/dL 3.5-5 L 80018-6) Total Bilirubin (test 1.5 mg/dL 0.1-1.2 H code = 1975-2) Bilirubin, Direct (test 0.7 mg/dL 0-0.4 H code = 1968-7) Alkaline Phosphatase 58 U/L 30-115 (test code = 6768-6) AST (test code = 1920-8) 17 U/L 5-40 ALT (test code = 1742-6) 10 U/L 5-50 DE (test code = DE) Pillowcase Folder ID - ADMINOperator ID - ADMINOperator ID - ADMINOperator ID - ADMINOperator ID - ADMINOperator ID - ADMINOperator ID - ADMIN Lab Interpretation (test Abnormal code = 08582-9) [facility] [id number] 05:58:00 Test Item Value Reference Range Interpretation [...] (test code = 10 U/L 5-50 347) Pillowcase Folder ID - ADMINOperator ID - ADMINOperator ID - ADMINOperator ID - ADMINOperator ID - ADMINOperator ID - ADMINOperator ID - ADMINBasic metabolic [id number] 05:57:00 Test Item Value Reference Range Interpretation Comments Sodium (test code = 139 meq/L 680-887 7748-2) Potassium (test code 3.1 meq/L 3.6-5.5 L = 2823-3) Chloride (test code 105 meq/L 98-106 = 2075-0) CO2 (test code = 25 meq/L 20-29 2028-9) BUN (test code = 7 mg/dL 10-26 L 3094-0) Creatinine (test 0.77 mg/dL 0.5-1.2 code = 2160-0) Glucose (test code = 94 mg/dL 70-110 2345-7) Calcium (test code = 8.4 mg/dL 8.5-10.5 L 00764-6) EGFR (test code = 115 mL/min/1.73 [place] [address]-4) m NOT ACCURATE CREATININE CLEARANCE IN PREDICTING GLOMERULAR FILTRATION RATE . ESTIMATED GFR I S NOT APPLICABLE FOR DIALYSIS PATIENTS. DE (test code = Pillowcase Folder ID - DE) ADMINOperator ID - ADMINOperator ID - ADMINOperator ID - ADMINOperator ID - ADMINOperator ID - ADMINOperator ID - ADMINOperator ID - ADMINOperator ID - ADMINOperator ID - ADMIN Lab Interpretation Abnormal (test code = 46576-0) [facility]2020-[facility] 05:57:00 Test Item Value Reference Range Interpretation Comments Magnesium (test code = 1.9 mg/dL 1.5-3 44862-3) DE (test code = DE) Pillowcase Folder ID - ADMINOperator ID - ADMINOperator ID - ADMINOperator ID - ADMIN Lab Interpretation Normal (test code = 30211-0) [facility]OLIC [id number] 05:57:00 Test Item Value Reference Range Interpretation Comments SODIUM (BEAKER) 139 meq/L 135-148 (test code = 381) POTASSIUM (BEAKER) 3.1 meq/L 3.6-5.5 L (test code = 379) CHLORIDE (BEAKER) 105 meq/L 98-106 (test code = 382) CO2 (BEAKER) (test 25 meq/L 20-29 code = 355) BLOOD UREA NITROGEN 7 [...] S NOT APPLICABLE FOR DIALYSIS PATIEN TS. Pillowcase Folder ID - ADMINOperator ID - ADMINOperator ID - ADMINOperator ID - ADMINOperator ID - ADMINOperator ID - ADMINOperator ID - ADMINOperator ID - ADMINOperator ID - ADMINOperator ID - [id number] 05:57:00 Test Item Value Reference Range Interpretation Comments MAGNESIUM (BEAKER) (test code = 1.9 mg/dL 1.5-3.0 627) Pillowcase Folder ID - ADMINOperator ID - ADMINOperator ID - ADMINOperator ID - ADMINCBC with platelet count + automated [id number] 05:46:00 Test Item Value Reference Range Interpretation Comments WBC (test code = 6690-2) 6.9 See_Comment [A utomated message] The system [employer] generated this result transmitted ref erence range: 4.0 - 10 .0 K/L. The refe rence range was not u sed to interpret this result as normal/abnor mal. RBC (test code = 789-8) 3.46 See_Comment L [Au tomated message] The system [employer] generated this result transmitted ref erence range: 4.00 - 5 .00 M/L. The refe rence range was not u sed to interpret this result as normal/abnor mal. MCHC (test code = 786-4) 30.4 See_Comment L [A utomated message] The system [employer] generated this result transmitted ref erence range: 32.0 - 3 6.0 GM/DL. The refe rence range was not u sed to interpret this result as normal/abnor mal. Hematocrit (test code = 29.6 % 36-46 L 4544-3) MCV (test code = 787-2) 85.5 fL 82-99 MCH (test code = 785-6) 26.0 pg 27-33 L RDW (test code = 788-0) 13.9 % 12-15 Platelets (test code = 260 See_Comment [Aut omated message] 777-3) The system [employer] generated this result transmitted ref erence range: 150 - 43 0 K/CU MM. The referen ce range was not u sed to interpret this result as normal/abnor mal. MPV (test code = 11.1 fL 6-11.5 03359-3) nRBC (test code = 413) 0 See_Comment [Aut omated message] The system [employer] generated this result transmitted ref erence range: 0 - 0 /1 00 WBC. The refere nce range was not u sed to interpret this result as normal/abnor mal. % Neutros (test code = 61 % 429) % Lymphs (test code = 29 % 430) % Monos (test code = 10 % 431) % Eos (test code = 432) 0 % % Baso (test code = 437) 0 % # Neutros (test code = 4.20 See_Comment [Aut omated message] 670) The system [employer] generated this result transmitted ref erence range: 1.80 - 8 .00 K/L. The refe rence range was not u sed to interpret this result as normal/abnor mal. # Lymphs (test code = 2.00 See_Comment [Auto mated message] 414) The system [employer] generated this result transmitted ref erence range: 1.48 - 4 .50 K/L. The refe rence range was not u sed to interpret this result as normal/abnor mal. # Monos (test code = 0.67 See_Comment [Autom ated message] 415) The system [employer] generated this result transmitted ref erence range: 0.00 - 1 .30 K/L. The refe rence range was not u sed to interpret this result as normal/abnor mal. # Eos (test code = 416) 0.02 See_Comment [Au tomated message] The system [employer] generated this result transmitted ref erence range: 0.00 - 0 .50 K/L. The refe rence range was not u sed to interpret this result as normal/abnor mal. # Baso (test code = 417) 0.01 See_Comment [A utomated message] The system [employer] generated this result transmitted ref erence range: 0.00 - 0 .20 K/L. The refe rence range was not u sed to interpret this result as normal/abnor mal. Immature 0 % 0-0 Granulocytes-Relative (test code = 2801) Lab Interpretation (test Abnormal code = 19942-2) [facility] W/PLT COUNT & AUTO [id number] 05:46:00 Test Item Value Reference Range Interpretation [...] PERCENT (BEAKER) (test code = 2801) Troponin [id number] 23:30:00 Test Item Value Reference Range Interpretation Comments Troponin I (test code = <0.03 0-0.15 63919-7) DE (test code = DE) Troponin I [...] ADMIN Lab Interpretation (test Normal code = 75188-4) [facility] [id number] 23:30:00 Test Item Value Reference Range Interpretation [...] failure, acidosis, acute neurological disease, and persistent tachyarrhythmia.Pillowcase Folder ID - ADMINVENOUS DOPPLER LEGS, [id number] 21:06:00Reason for exam:->eval for DVTs [facility] 2000 Sex: FFINAL [...] deep venous thrombosis bilaterally. Signed: Agustin Manzano MDReptwo [facility] Verified Date/Time: 12/25/2019 21:06:22 Venous doppler legs [id number] 21:06:00Interface, External Ris In - 12/25/2019 9:08 [...] for deep venous thrombosis bilaterally. Signed: Agustin Manzanoeplexi Verified Date/Time: 12/25/2019 21:06:22 [facility]/[id number] 20:06:00 Test Item Value Reference Interpretation Comments Range Protime (test code = 13.0 See_Comment H Final 5902-2) Information (Auto Output) [Automated message] The system which generated this result transmitted reference range : 9.3 - 12.0 seconds. The reference range was not used to interpret this result as normal/abnormal . INR (test code = 1.21 See_Comment Final 6301-6) Information (Auto Output) [Automated message] The system which generated this result transmitted reference range : <=5.90. The reference range was not used to interpret this result as normal/abnormal . PTT (test code = 22.2 See_Comment L Final 66115-7) Information (Auto Output) [Automated message] The system which generated this result transmitted reference range : 23.0 - 35.0 seconds. The reference range was not used to interpret this result as normal/abnormal . DE (test code = RECOMMENDED DE) COUMADIN/WARFARIN INR THERAPY RANGESSTANDARD DOSE: 2.0 - 3.0 Includes: PROPHYLAXIS for venous thrombosis, systemic embolization; TREATMENT for venous thrombosis and/or pulmonary embolus.HIGH RISK: Target INR is 2.5-3.5 for patients with mechanical heart valves. Lab Interpretation Abnormal (test code = 81783-7) [facility]PT/[id number] 20:06:00 Test Item Value Reference Range Interpretation [...] (test code Negative Not Detected, Negative, = 49488-3) See external report for linked test SARS-COV-2 PERFORMING LAB [facility] (test code = 43773-3) [facility] & REF LABS)2019-12-25 19:52:00 Test Item Value Reference Range Interpretation Comments SARS-COV2/RT-PCR (test code Negative Not Detected, Negative, = 1592517) See external report for linked test SARS-COV-2 PERFORMING LAB [facility] (test code = 0436481) TROPONIN [id number] 19:29:00 Test Item Value Reference Range Interpretation [...] failure, acidosis, acute neurological disease, and persistent tachyarrhythmia.Pillowcase Folder ID - ADMINCT, CHEST WITH IV CONTRAST- PE TEST [id number] 17:10:00Reason for exam:->RIB INJURY Is the patient ?->No What is the patient's sedation requirement?->No [facility] : 2000 Sex: FFINAL REPORT CT Chest [...] MDReport Verified Date/Time: 12/25/2019 17:10:11 Reading Location: [address] Consult Reading Room CT chest for pulmonary [id number] 17:10:00Interface, External Ris In - 12/25/2019 5:12 [...] MDReport Verified Date/Time: 12/25/2019 17:10:11 Reading Location: [facility] C013W Consult Reading Room [facility] [id number] 16:31:00 Test Item Value Reference Range Interpretation [...] failure, acidosis, acute neurological disease, and persistent tachyarrhythmia.Pillowcase Folder ID - ADMINPregnancy Screen, [id number] 14:49:00 Test Item Value Reference Range Interpretation Comments Preg Test, Ur (test code = 2112-1) Negative [facility] HospitalPREGNANCY SCREEN, [id number] 14:49:00 Test Item Value Reference Range Interpretation Comments TEST URINE (BEAKER) (test Negative code = 583) D-dimer, [id number] 14:38:00 Test Item Value Reference Range Interpretation Comments D-Dimer, Quant (test 2.97 See_Comment H Final I nformation code = 89243-7) (Auto Output ) [Automated message] The system which generated this result transmitted reference range : <0.50 MG/L FEU. The reference range was not used to interpr et this result as normal/abnormal . DE (test code = REGARDING D-DIMER DE) RESULTS: The 98% NPV (Negative Predictive Value) for DVT/PE exclusion is 0.50 mg/L FEU as suggested by the manufacturing engineer machining and as approved by the FDA. Lab Interpretation Abnormal (test code = 48406-1) [facility] HospitalD-[id number] 14:38:00 Test Item Value Reference Range Interpretation Comments D-DIMER QUANTITATIVE 2.97 MG/L FEU <0.50 H Final Information (BETTY) (test code = (Auto Output) 678) REGARDING D-DIMER RESULTS: The 98% NPV (Negative Predictive Value) for DVT/PE exclusion is 0.50 mg/LFEU as suggested by the manufacturing engineer machining and as approved by the FDA.[id number] 13:45:00 Test Item Value Reference Range Interpretation Comments Lipase (test code = 33 U/L 3040-3) DE (test code = DE) Pillowcase Folder ID - ADMINOperator ID - ADMINOperator ID - ADMINOperator ID - ADMIN Lab Interpretation Normal (test code = 09557-8) [facility] HospitalTROPONIN [id number] 13:45:00 Test Item Value Reference Range Interpretation [...] failure, acidosis, acute neurological disease, and persistent tachyarrhythmia.Pillowcase Folder ID - [id number] 13:45:00 Test Item Value Reference Range Interpretation Comments LIPASE (AYDEEAKER) (test code = 749) 33 U/L Pillowcase Folder ID - ADMINOperator ID - ADMINOperator ID - ADMINOperator ID - ADMIN Comprehensive metabolic [id number] 13:44:00 Test Item Value Reference Range Interpretation Comments Protein, Total (test 7.4 See_Comment Specime n code = 2885-2) slightly hemolyzed [Automated message] The system which generated this result transmitted reference range : 6.0 - 8.5 gm/dL . The reference range was not used to interpret this result as normal/abnormal . Albumin (test code = 3.8 g/dL 3.5-5 [place] [address]-8) slightly hemolyzed Alkaline Phosphatase 64 U/L 30-115 (test code = 6768-6) Total Bilirubin 1.7 mg/dL 0.1-1.2 H Specimen (test code = 1974-2) slightl y hemolyzed Sodium (test code = 140 meq/L 313-321 7461-2) Potassium (test code 3.7 meq/L 3.6-5.5 Specime [...] Calcium (test code = 8.7 mg/dL 8.5-10.5 10382-4) AST (test code = 20 U/L 5-40 Specimen 1920-8) slightly hemolyzed ALT (test code = 11 U/L 5-50 Specimen 1742-6) slightly hemolyzed EGFR (test code = 105 mL/min/1.73 [place] [address]-8) m NOT ACCURATE CREATININE CLEARANCE IN PREDICTING GLOMERULAR FILTRATION RATE . ESTIMATED GFR I S NOT APPLICABLE FOR DIALYSIS PATIENTS. DE (test code = Pillowcase Folder ID - DE) ADMINOperator ID - ADMINOperator ID - ADMINOperator ID - ADMINOperator ID - ADMINOperator ID - ADMINOperator ID - ADMINOperator ID - ADMINOperator ID - ADMINOperator ID - ADMINOperator ID - ADMINOperator ID - ADMINOperator ID - ADMINOperator ID - ADMINOperator ID - ADMINOperator ID - ADMIN Lab Interpretation Abnormal (test code = 60827-0) [facility] HospitalCOMPREHENSIVE METABOLIC [id number] 13:44:00 Test Item Value Reference Range Interpretation [...] S NOT APPLICABLE FOR DIALYSIS PATIEN TS. Pillowcase Folder ID - ADMINOperator ID - ADMINOperator ID - ADMINOperator ID - ADMINOperator ID - ADMINOperator ID - ADMINOperator ID - ADMINOperator ID - ADMINOperator ID - ADMINOperator ID - ADMINOperator ID- ADMINOperator ID - ADMINOperator ID - ADMINOperator ID - ADMINOperator ID - ADMINOperator ID - ADMI NCBC W/PLT COUNT & AUTO [id number] 13:27:00 Test Item Value Reference Range Interpretation [...] = 2801) RAD, CHEST, 1 VIEW, NON [id number] 13:21:00Reason for exam:->RIB INJURYShould this be performed at the bedside?->Yes [facility] 2000 Sex: FFINAL REPORT INDICATION: RIB INJURY COMPARISON: None TECHNIQUE: Single frontal view of the chest. FINDINGS: Lungs and pleura: Clear lungs. No effusion.Heart and mediastinum:Normal heart size. Unremarkable mediastinal contours.Osseous structures: No acute abnormality.Other:None. IMPRESSION: No acute intrathoracic abnormality. Signed: JR Osei Robert MDReport Veri fied Date/Time: 12/25/2019 13:21:03 Reading Location: [facility] Radiology Reading Room XR chest 1 view portable / [id number] 13:21:00Interface, External Ris In - 12/25/2019 1:23 PM CDTFINAL REPORT INDICATION: RIB INJURY COMPARISON: None TECHNIQUE: Single frontal view of the chest. FINDINGS: Lungs and pleura: Clear lungs. No effusion.Heart and mediastinum: Normal heart size. Unremarkable mediastinal contours.Osseous structures: No acute abnormality.Other: None. IMPRESSION: No acute intrathoracic abnormality. Signed: JR Osei Robert MDReport Verified Date/Time: 12/25/2019 13:21:03 Reading Location: [facility] Radiology Reading Room [facility]G/EKG [id number] 12:40:14Pamella Ordonez NP 12/25/2019 5:53 PMECG/EKG Interpretation Date/Time: 12/25/20191:45 PMPerformed by: Pamella Ordonez NPAuthorized by: Allan Nolasco MD The ECG was interpreted by ED physician. This ECG was not compared with previous ECG(s).The ECG is interpreted as sinus rhythm. Rate is normal rate. Heart rate is 98 BPM.ST segments normal. T waves normal. [place] is normal. Other findings: no other findings. Clinical Impression: normal ECGECG reviewed and doesnot meet STEMI criteria.[facility] [id number] 00:00:00Ordered by an unspecified provider.[facility]
--- NOTE | 2020-10-08 16:46 | EDPHYS ---
Physician Documentation [facility] Name: Golden Gusman Age: 20 yrs Sex: Female : 2000 Arrival Date: 10/08/2020 Time: 12:24 Bed DIS4 Private MD: ED Physician Ramesh Garay HPI: 10/08 16:11 This 20 yrs old Black Female presents to ER via Ambulatory with complaints of cant george taste/smell, Headache - . 16:11 The patient complains of pain to the top of head, forehead, left frontal area, left george side of the back of head, left occipital area, left base of the skull, right frontal area, right side of the back of head, right occipital area and right base of the skull. The patient describes the headache as aching, constant. Onset: The symptoms/episode began/occurred 3 day(s) ago. Associated signs and symptoms: Pertinent positives: nausea, sinus congestion, weakness. Severity of symptoms: At its worst the pain was mild, in the emergency department the pain has improved, mildly. Headache History: Denies prior headaches. The symptoms are alleviated by nothing. the symptoms are aggravated by nothing. The patient has not experienced similar symptoms in the past. Historical: - Allergies: 13:15 NKA; aa5 - PMHx: 13:15 None; aa5 - PSHx: 13:15 None; aa5 - Immunization history:: Client reports having NOT received the Covid vaccine. Flu vaccine is not up to date. - Social history:: Smoking status: Patient denies any tobacco usage or history of. - Family history:: not pertinent. ROS: 16:11 Constitutional: Negative for fever, chills, and weight loss, Eyes: Negative for injury, george pain, redness, and discharge, ENT: Negative for injury, pain, and discharge, Neck: Negative for injury, pain, and swelling, Cardiovascular: Negative for chest pain, palpitations, and edema, Respiratory: Negative for shortness of breath, cough, wheezing, and pleuritic chest pain, Abdomen/GI: Negative for abdominal pain, nausea, vomiting, diarrhea, and constipation, Back: Negative for injury and pain, : Negative for injury, bleeding, discharge, and swelling, MS/Extremity: Negative for injury and deformity, Skin: Negative for injury, rash, and discoloration, Psych: Negative for depression, anxiety, suicide ideation, homicidal ideation, and hallucinations, Allergy/Immunology: Negative for hives, rash, and allergies, Endocrine: Negative for neck swelling, polydipsia, polyuria, polyphagia, and marked weight changes, Hematologic/Lymphatic: Negative for swollen nodes, abnormal bleeding, and unusual bruising. 16:11 Neuro: Positive for headache. Exam: 16:11 Constitutional: This is a well developed, well nourished patient who is awake, alert, george and in no acute distress. Head/Face: Normocephalic, atraumatic. Eyes: Pupils equal round and reactive to light, extra-ocular motions intact. Lids and lashes normal. Conjunctiva and sclera are non-icteric and not injected. Cornea within normal limits. Periorbital areas with no swelling, redness, or edema. ENT: Nares patent. No nasal discharge, no septal abnormalities noted. Tympanic membranes are normal and external auditory canals are clear. Oropharynx with no redness, swelling, or masses, exudates, or evidence of obstruction, uvula midline. Mucous membranes moist. Neck: Trachea midline, no thyromegaly or masses palpated, and no cervical lymphadenopathy. Supple, full range of motion without nuchal rigidity, or vertebral point tenderness. No Meningismus. Chest/axilla: Normal chest wall appearance and motion. Nontender with no deformity. No lesions are appreciated. Cardiovascular: Regular rate and rhythm with a normal S1 and S2. No gallops, murmurs, or rubs. Normal PMI, no JVD. No pulse deficits. Respiratory: Lungs have equal breath sounds bilaterally, clear to auscultation and percussion. No rales, rhonchi or wheezes noted. No increased work of breathing, no retractions or nasal flaring. Back: No spinal tenderness. No costovertebral tenderness. Full range of motion. Female : Normal external genitalia. Skin: Warm, dry with normal turgor. Normal color with no rashes, no lesions, and no evidence of cellulitis. MS/ Extremity: Pulses equal, no cyanosis. Neurovascular intact. Full, normal range of motion. Neuro: Awake and alert, GCS 15, oriented to person, place, time, and situation. Cranial nerves II-XII grossly intact. Motor strength 5/5 in all extremities. Sensory grossly intact. Cerebellar exam normal. Normal gait. Psych: Awake, alert, with orientation to person, place and time. Behavior, mood, and affect are within normal limits. 16:11 Abdomen/GI: Inspection: gravid appearance, is noted, Bowel sounds: normal, Palpation: abdomen is soft and non-tender, Liver: no appreciated palpable abnormalities, Hernia: not appreciated. 16:11 Musculoskeletal/extremity: DVT Exam: No signs of deep vein thrombosis. no pain, no swelling, no tenderness, negative Homans' sign noted on exam, no appreciated bluish discoloration, no erythema, no increased warmth. Vital Signs: 13:15 BP 129 / 71; Pulse 94; Resp 18 S; Temp 98.4(O); Pulse Ox 100% on R/A; Weight 76.66 kg aa5 (R); Height 5 ft. 9 in. (175.26 cm) (R); 13:15 Body Mass Index 24.96 (76.66 kg, 175.26 cm) aa5 [place] Coma Score: 16:14 Eye Response: spontaneous(4). Verbal Response: oriented(5). Motor Response: obeys [facility] [place] commands(6). Total: 15. MDM: 15:45 Patient medically screened. george 16:14 Differential diagnosis: sinusitis, trigeminal neuralgia. Data reviewed: vital signs, [facility] nurses notes, lab test result(s), Flu: negative. Data interpreted: electronic device monitor: rate is 94 beats/min, rhythm is regular, Pulse oximetry: on room air is 100 %. Counseling: I had a detailed discussion with the patient and/or guardian regarding: the historical points, exam findings, and any diagnostic results supporting the discharge/admit diagnosis, lab results, radiology results. 10/08 15:04 Order name: SARS-COV-2 RT PCR; Complete Time: 15:08 EDMS Administered Medications: No medications were administered Disposition Summary: 10/08/20 16:45 Discharge Ordered Location: Home [facility] Problem: new george Symptoms: have improved george Condition: Stable george Diagnosis - Coronavirus infection, unspecified - Covid 19 george - 20 weeks gestation of george Followup: george - With: Private Physician - When: 2 - 3 days - Reason: Recheck today's complaints, Continuance of care, Re-evaluation by your physician Followup: george - With: Andrez Vieira MD - When: 2 - 3 days - Reason: Recheck today's complaints, Continuance of care, Re-evaluation by your physician Discharge Instructions: - Discharge Summary Sheet george - Care george - Upper Respiratory Infection, Adult george - Viral Respiratory Infection, [id number] george - COVID-19 [facility] Forms: - Medication Reconciliation Form george - Thank You Letter george - Antibiotic Education george - Prescription Opioid Use george - Work release form 5 Signatures: Dispatcher [employer] EDRamesh Sandy MD MD cha Calderon, Audri RN RN aa5 Kenneth Dhillon NP SULFUR BURNER pm1 Corrections: (The following items were deleted from the chart) 13:20 13:15 PMHx: fibroids; aa5 aa5 14:03 13:01 CORONAVIRUS+MRRADHA.ROXANNEZ ordered. [facility] EDKS
--- NOTE | 2020-10-08 16:46 | ER ---
Nurse's Notes [facility] Name: Golden Gusman Age: 20 yrs Sex: Female : 2000 Arrival Date: 10/08/2020 Time: 12:24 Bed DIS4 Private MD: Diagnosis: Coronavirus infection, unspecified-Covid 19;20 weeks gestation of Presentation: 10/08 13:15 Chief complaint: Patient states: no smell or taste, headaches, congestion, and slight aa5 cough that began 3 days ago. Pt reports she is 4 months . 13:15 Method Of Arrival: Ambulatory aa5 13:15 Coronavirus screen: congestion, cough unrelated to allergies. Ebola Screen: Patient aa5 negative for fever greater than or equal to 101.5 degrees Fahrenheit, and additional compatible Ebola Virus Disease symptoms. Initial Sepsis Screen: Does the patient meet any 2 criteria? HR > 90 bpm. Does the patient have a suspected source of infection? No. Patient's initial sepsis screen is negative. Risk Assessment: Do you want to hurt yourself or someone else? Patient reports no desire to harm self or others. Onset of symptoms was October 2020. 13:15 Acuity: ANALIA 4 aa5 Historical: - Allergies: 13:15 NKA; aa5 - PMHx: 13:15 None; aa5 - PSHx: 13:15 None; aa5 - Immunization history:: Client reports having NOT received the Covid vaccine. Flu vaccine is not up to date. - Social history:: Smoking status: Patient denies any tobacco usage or history of. - Family history:: not pertinent. Vital Signs: 13:15 BP 129 / 71; Pulse 94; Resp 18 S; Temp 98.4(O); Pulse Ox 100% on R/A; Weight 76.66 kg aa5 (R); Height 5 ft. 9 in. (175.26 cm) (R); 13:15 Body Mass Index 24.96 (76.66 kg, 175.26 cm) aa5 [place] Coma Score: 16:14 Eye Response: spontaneous(4). Verbal Response: oriented(5). Motor Response: obeys george commands(6). Total: 15. ED Course: 12:24 Patient arrived in ED. am2 13:15 Arm band placed on. aa5 13:20 Triage completed. aa5 14:55 Lianne Rasmussen, RN is Primary Nurse. ld1 15:45 Ramesh Garay MD is Attending Physician. george 16:44 Andrez Vieira MD is Referral Physician. george Administered Medications: No medications were administered Outcome: 16:45 Discharge ordered by . george 17:15 Patient left the ED. kj1 Signatures: Ramesh Garay MD MD cha Calderon, Audri RN RN aa5 Janine Freeman amAbi Hernandez kj1 Lianne Rasmussen, RN RN ld1 Corrections: (The following items were deleted from the chart) 13:20 13:15 PMHx: fibroids; aa5 aa5 13:21 13:15 Chief complaint: Patient states: no smell or taste, headaches, congestion, and aa5 slight cough that began 3 days ago. aa5
[2020-10-08 17:29] VITALS: BP 129/71; TEMP 98.4; O2SAT 100
== END 2020-10-08 17:15 | disposition home or self-care (01) ==
LOC: ER 12:20
DX: O98.512 Other viral diseases complicating pregnancy, second trimester (principal); U07.1 COVID-19; Z3A.20 20 weeks gestation of pregnancy
CPT/HCPCS: 99281; U0003